=== PATIENT | male | born 1955 | race Caucasian/White ===

== ENCOUNTER → 2023-12-01 10:51 | Outpatient (REF) | payer OTHER, SELFPAY | LOC: HWRAD 10:51 | PROVIDERS: ATTENDING PHYSICIAN Student in an Organized Health Care Education/Training Program | DX: Z87.891 Personal history of nicotine dependence (principal) | CPT/HCPCS: 71271 ==

== ENCOUNTER 2023-12-06 06:16 | Day surgery (SDC) | payer OTHER, SELFPAY ==
[2023-12-03 06:35] VITALS: BMI 29.7
[2023-12-03 09:08] LABS: Hemoglobin 14.8 g/dL (13.0-18.0); Mean Corp Hgb Conc. 33.6 g/dL (33.0-37.0); Mean Corpuscular Hgb 33.9 pg (27.0-31.0); Mean Corpuscular Volume 100.7 fL (80.0-94.0); Mean Platelet Volume 9.7 fL (7.4-10.4); Platelet Count 250 10^3/uL (130-400); Red Blood Cell Count 4.37 10^6/uL (4.70-6.10); Red Cell Dist. Width 11.7 % (11.5-14.5); White Blood Cell Count 8.8 10^3/uL (4.8-10.8)
[2023-12-03 09:17] LABS: INR 1.08; PT 13.8 Sec (11.4-14.6)
[2023-12-03 09:18] LABS: APTT 35.6 Sec (23.4-35.0)
[2023-12-03 09:33] LABS: Blood Urea Nitrogen 11 mg/dl (9-20); Calcium 9.5 mg/dl (8.4-10.2); Carbon Dioxide 30 mmol/L (22-30); Chloride 104 mmol/L (98-107); Estimated Creatinine Clearance 73 ml/min; Glucose 99 mg/dl (70-99); Potassium 4.6 mmol/L (3.5-5.1); Sodium 138 mmol/L (135-145); eGFR > 60.00
[2023-12-06] VITALS (10 sets, daily range): BP systolic 111–168; BP diastolic 79–102; BMI 29.6
== END 2023-12-06 12:09 | disposition home or self-care (01) ==
LOC: GI 06:16
PROVIDERS: ATTENDING PHYSICIAN Internal Medicine Critical Care Medicine; FAMILY PHYSICIAN Student in an Organized Health Care Education/Training Program
DX: C34.11 Malignant neoplasm of upper lobe, right bronchus or lung (principal); R91.8 Other nonspecific abnormal finding of lung field; R06.02 Shortness of breath; R09.89 Other specified symptoms and signs involving the circulatory and respiratory systems; J45.909 Unspecified asthma, uncomplicated; Z87.891 Personal history of nicotine dependence
CPT/HCPCS: 31629; 31652; 31628; 31624; 31623; 31627; 31654; 88172; 88173; 88305; 36415; 71045; 76000; 80048; 85027; 85610; 85730; 87070; 87102; 87116; 87205; 88112; 88177; 88333; 88341; 88342; 93005; 94640; C1887

== ENCOUNTER → 2024-01-07 13:19 | Outpatient (REF) | payer OTHER, SELFPAY | LOC: MRI 3T 13:19 | PROVIDERS: ATTENDING PHYSICIAN Internal Medicine Hematology & Oncology; FAMILY PHYSICIAN Student in an Organized Health Care Education/Training Program | DX: C34.11 Malignant neoplasm of upper lobe, right bronchus or lung (principal) | CPT/HCPCS: 70553; A9575 ==

== ENCOUNTER → 2024-01-13 08:21 | Outpatient (REF) | payer OTHER, SELFPAY ==
[2024-01-13 09:16] LABS: % Basophils 0.4 % (0-2); % Eosinophils 2.2 % (0-6); % Immature Granulocytes 0.3 % (0-0.5); % Lymphocytes 34.2 % (20.5-51.1); % Neutrophils 52.9 % (42.2-75.2); Absolute Eosinophils 0.2 10^3/uL (0-0.7); Absolute Lymphocytes 2.7 10^3/uL (1.2-3.4); Absolute Monocytes 0.8 10^3/uL (0.1-0.6); Absolute Neutrophils 4.1 10^3/uL (1.4-6.5); Hematocrit 44.6 % (39.0-52.0); Hemoglobin 14.7 g/dL (13.0-18.0); Mean Corpuscular Hgb 33.4 pg (27.0-31.0); Mean Corpuscular Volume 101.4 fL (80.0-94.0); Mean Platelet Volume 9.7 fL (7.4-10.4); Nucleated Red Blood Cells % 0 % (-); Platelet Count 225 10^3/uL (130-400); Red Cell Dist. Width 11.8 % (11.5-14.5); White Blood Cell Count 7.8 10^3/uL (4.8-10.8)
[2024-01-13] MEDS: ANCEF 10 IV (09:27)
[2024-01-13 09:33] VITALS: BP 135/97; BP_SYST 67
[2024-01-13 09:39] LABS: ALT (SGPT) 21 U/L (0-50); AST (SGOT) 27 U/L (17-59); Albumin 4.1 g/dl (3.5-5.0); Alkaline Phosphatase 114 U/L (38-126); Blood Urea Nitrogen 11 mg/dl (9-20); Calcium 9.4 mg/dl (8.4-10.2); Carbon Dioxide 31 mmol/L (22-30); Chloride 104 mmol/L (98-107); Glucose 102 mg/dl (70-99); Potassium 5.4 mmol/L (3.5-5.1); Sodium 142 mmol/L (135-145); Total Bilirubin 0.5 mg/dl (0.2-1.3); Total Protein 7.2 g/dl (6.3-8.2); eGFR > 60.00
[2024-01-13 09:41] LABS: Glucose - Point of Care 104 mg/dl (70-99)
[2024-01-13 09:56] LABS: Free T4 1.42 ng/dl (0.78-2.19)
[2024-01-13 10:10] LABS: TSH 4.26 uIU/ml (0.47-4.68)
[2024-01-13 10:56] VITALS: BP 133/88; BP_SYST 60
[2024-01-13 11:05] VITALS: BP 136/85; BP_SYST 57
[2024-01-13 11:16] VITALS: BP 135/90
[2024-01-15 02:02] LABS: Total T3 (Sendout) 120 ng/dL (80-200)
== END ==
LOC: RADI 08:21
PROVIDERS: ATTENDING PHYSICIAN Internal Medicine Hematology & Oncology; FAMILY PHYSICIAN Student in an Organized Health Care Education/Training Program
DX: C34.11 Malignant neoplasm of upper lobe, right bronchus or lung (principal)
CPT/HCPCS: 36415; 36561; 76937; 77001; 80053; 82962; 84439; 84443; 84480; 85025; 99152; 99153

== ENCOUNTER → 2024-01-18 10:30 | Outpatient (REF) | payer OTHER, SELFPAY ==
[2024-01-18 09:49] LABS: % Basophils 0.2 % (0-2); % Eosinophils 2.2 % (0-6); % Immature Granulocytes 0.2 % (0-0.5); % Monocytes 11.9 % (1.7-9.3); % Neutrophils 55.5 % (42.2-75.2); Absolute Eosinophils 0.2 10^3/uL (0-0.7); Absolute Lymphocytes 2.8 10^3/uL (1.2-3.4); Absolute Monocytes 1.1 10^3/uL (0.1-0.6); Absolute Neutrophils 5.2 10^3/uL (1.4-6.5); Hematocrit 42.5 % (39.0-52.0); Hemoglobin 14.7 g/dL (13.0-18.0); Mean Corp Hgb Conc. 34.6 g/dL (33.0-37.0); Mean Corpuscular Hgb 33.8 pg (27.0-31.0); Mean Corpuscular Volume 97.7 fL (80.0-94.0); Mean Platelet Volume 9.3 fL (7.4-10.4); Platelet Count 211 10^3/uL (130-400); Red Blood Cell Count 4.35 10^6/uL (4.70-6.10); Red Cell Dist. Width 11.5 % (11.5-14.5); White Blood Cell Count 9.3 10^3/uL (4.8-10.8)
[2024-01-18 10:29] LABS: ALT (SGPT) 20 U/L (0-50); AST (SGOT) 27 U/L (17-59); Albumin 4.3 g/dl (3.5-5.0); Alkaline Phosphatase 116 U/L (38-126); Blood Urea Nitrogen 8 mg/dl (9-20); Calcium 9.5 mg/dl (8.4-10.2); Carbon Dioxide 27 mmol/L (22-30); Chloride 105 mmol/L (98-107); Glucose 113 mg/dl (70-99); Potassium 4.2 mmol/L (3.5-5.1); Sodium 140 mmol/L (135-145); Total Bilirubin 0.6 mg/dl (0.2-1.3); Total Protein 7.6 g/dl (6.3-8.2); eGFR > 60.00
== END ==
LOC: OIDL 10:30
PROVIDERS: ATTENDING PHYSICIAN Internal Medicine Hematology & Oncology
DX: C34.11 Malignant neoplasm of upper lobe, right bronchus or lung (principal)
CPT/HCPCS: 80053; 85025

== ENCOUNTER → 2024-01-25 09:11 | Outpatient (REF) | payer OTHER, SELFPAY ==
[2024-01-25 09:50] LABS: % Basophils 0.3 % (0-2); % Eosinophils 1.8 % (0-6); % Immature Granulocytes 0.5 % (0-0.5); % Lymphocytes 33.7 % (20.5-51.1); % Monocytes 2.3 % (1.7-9.3); % Neutrophils 61.4 % (42.2-75.2); Absolute Eosinophils 0.1 10^3/uL (0-0.7); Absolute Lymphocytes 1.3 10^3/uL (1.2-3.4); Absolute Monocytes 0.1 10^3/uL (0.1-0.6); Absolute Neutrophils 2.4 10^3/uL (1.4-6.5); Hematocrit 41.5 % (39.0-52.0); Hemoglobin 13.9 g/dL (13.0-18.0); Mean Corp Hgb Conc. 33.5 g/dL (33.0-37.0); Mean Corpuscular Volume 98.6 fL (80.0-94.0); Mean Platelet Volume 9.6 fL (7.4-10.4); Nucleated Red Blood Cells % 0 % (-); Platelet Count 113 10^3/uL (130-400); Red Blood Cell Count 4.21 10^6/uL (4.70-6.10); Red Cell Dist. Width 11.2 % (11.5-14.5); White Blood Cell Count 3.9 10^3/uL (4.8-10.8)
[2024-01-25 10:24] LABS: ALT (SGPT) 24 U/L (0-50); AST (SGOT) 35 U/L (17-59); Albumin 4.2 g/dl (3.5-5.0); Alkaline Phosphatase 105 U/L (38-126); Blood Urea Nitrogen 18 mg/dl (9-20); Calcium 9.1 mg/dl (8.4-10.2); Carbon Dioxide 27 mmol/L (22-30); Chloride 101 mmol/L (98-107); Glucose 131 mg/dl (70-99); Sodium 137 mmol/L (135-145); Total Bilirubin 0.8 mg/dl (0.2-1.3); Total Protein 7.3 g/dl (6.3-8.2); eGFR > 60.00
== END ==
LOC: REG 09:11
PROVIDERS: ATTENDING PHYSICIAN Internal Medicine Hematology & Oncology; FAMILY PHYSICIAN Student in an Organized Health Care Education/Training Program
DX: C34.11 Malignant neoplasm of upper lobe, right bronchus or lung (principal)
CPT/HCPCS: 36415; 80053; 85025

== ENCOUNTER → 2024-02-08 10:46 | Outpatient (REF) | payer OTHER, SELFPAY ==
[2024-02-08 11:35] LABS: Hematocrit 32.4 % (39.0-52.0); Mean Corpuscular Hgb 33.1 pg (27.0-31.0); Mean Corpuscular Volume 97.6 fL (80.0-94.0); Mean Platelet Volume 9.2 fL (7.4-10.4); Platelet Count 564 10^3/uL (130-400); Red Blood Cell Count 3.32 10^6/uL (4.70-6.10); Red Cell Dist. Width 11.6 % (11.5-14.5); White Blood Cell Count 2.8 10^3/uL (4.8-10.8)
[2024-02-08 11:59] LABS: ALT (SGPT) 36 U/L (0-50); AST (SGOT) 41 U/L (17-59); Albumin 3.6 g/dl (3.5-5.0); Alkaline Phosphatase 94 U/L (38-126); Blood Urea Nitrogen 9 mg/dl (9-20); Calcium 8.7 mg/dl (8.4-10.2); Carbon Dioxide 30 mmol/L (22-30); Chloride 104 mmol/L (98-107); Glucose 120 mg/dl (70-99); Potassium 4.2 mmol/L (3.5-5.1); Sodium 140 mmol/L (135-145); Total Bilirubin 0.3 mg/dl (0.2-1.3); Total Protein 6.6 g/dl (6.3-8.2); eGFR > 60.00
[2024-02-08 12:30] LABS: TSH Reflex To Free T4 0.08 uIU/ml (0.47-4.68)
[2024-02-08 12:59] LABS: Free T4 4.25 ng/dl (0.78-2.19)
[2024-02-08 14:06] LABS: Nucleated Red Blood Cells % 0 % (-)
[2024-02-08 14:07] LABS: Absolute Neutrophils -Man Diff 0.6 10^3/uL (1.4-6.5); Band Neutrophils 0 % (0-3); Eosinophils 2 % (0-6); Lymphocytes 43 % (20-51); Monocytes 31 % (2-9); Myelocytes 2 % (-); Normal RBC Morphology Yes; Platelets Checked Yes; Segmented Neutrophils 22 % (42-75); Total Cells Counted 100
== END ==
LOC: REG 10:46
PROVIDERS: ATTENDING PHYSICIAN Internal Medicine Hematology & Oncology
DX: C34.11 Malignant neoplasm of upper lobe, right bronchus or lung (principal)
CPT/HCPCS: 36415; 80053; 84439; 84443; 85025

== ENCOUNTER → 2024-02-14 15:46 | Outpatient (REF) | payer OTHER, SELFPAY ==
[2024-02-14 11:37] LABS: Hematocrit 32.3 % (39.0-52.0); Mean Corp Hgb Conc. 34.1 g/dL (33.0-37.0); Red Blood Cell Count 3.33 10^6/uL (4.70-6.10); Red Cell Dist. Width 12.6 % (11.5-14.5); White Blood Cell Count 8.1 10^3/uL (4.8-10.8)
[2024-02-14 11:45] LABS: ALT (SGPT) 46 U/L (0-50); AST (SGOT) 49 U/L (17-59); Albumin 3.5 g/dl (3.5-5.0); Alkaline Phosphatase 108 U/L (38-126); Blood Urea Nitrogen 17 mg/dl (9-20); Calcium 8.6 mg/dl (8.4-10.2); Carbon Dioxide 26 mmol/L (22-30); Chloride 109 mmol/L (98-107); Glucose 112 mg/dl (70-99); Potassium 4.6 mmol/L (3.5-5.1); Sodium 143 mmol/L (135-145); Total Bilirubin 0.4 mg/dl (0.2-1.3); Total Protein 6.7 g/dl (6.3-8.2); eGFR > 60.00
[2024-02-14 11:50] LABS: Mean Platelet Volume 9.5 fL (7.4-10.4); Platelet Count 585 10^3/uL (130-400)
[2024-02-14 11:53] LABS: Band Neutrophils 3 % (0-3); Lymphocytes 26 % (20-51); Metamyelocytes 1 % (-); Monocytes 23 % (2-9); Platelets Checked Yes; Segmented Neutrophils 47 % (42-75)
[2024-02-14 11:54] LABS: Normal RBC Morphology Yes; Total Cells Counted 100
== END ==
LOC: OIDL 15:46
PROVIDERS: ATTENDING PHYSICIAN Internal Medicine Hematology & Oncology
DX: C34.11 Malignant neoplasm of upper lobe, right bronchus or lung (principal)
CPT/HCPCS: 80053; 85025

== ENCOUNTER → 2024-02-16 12:12 | Outpatient (REF) | payer OTHER, SELFPAY ==
[2024-02-16 13:17] LABS: Urine Albumin Trace (Neg - Trace); Urine Bilirubin 1+ (Negative); Urine Character Clear (Clear); Urine Color Yellow; Urine Glucose Negative (Negative); Urine Ketone Trace (Negative); Urine Leukocyte Negative (Negative); Urine Nitrite Negative (Negative); Urine Occult Blood Negative (Negative); Urine Urobilinogen Negative (Neg - 1+)
== END ==
LOC: REG 12:12
PROVIDERS: ATTENDING PHYSICIAN Internal Medicine Hematology & Oncology; FAMILY PHYSICIAN Student in an Organized Health Care Education/Training Program
DX: C34.11 Malignant neoplasm of upper lobe, right bronchus or lung (principal)
CPT/HCPCS: 81003; 87086; 87147; 87186

== ENCOUNTER → 2024-02-28 11:02 | Outpatient (REF) | payer OTHER, SELFPAY ==
[2024-02-28 12:14] LABS: % Basophils 0.2 % (0-2); % Eosinophils 0.2 % (0-6); % Immature Granulocytes 0.4 % (0-0.5); % Lymphocytes 27.4 % (20.5-51.1); % Neutrophils 56.8 % (42.2-75.2); Absolute Lymphocytes 1.4 10^3/uL (1.2-3.4); Absolute Monocytes 0.7 10^3/uL (0.1-0.6); Absolute Neutrophils 2.8 10^3/uL (1.4-6.5); Hematocrit 33.2 % (39.0-52.0); Hemoglobin 11.6 g/dL (13.0-18.0); Mean Corp Hgb Conc. 34.9 g/dL (33.0-37.0); Mean Corpuscular Hgb 33.2 pg (27.0-31.0); Mean Corpuscular Volume 95.1 fL (80.0-94.0); Nucleated Red Blood Cells % 0 % (-); Red Blood Cell Count 3.49 10^6/uL (4.70-6.10); Red Cell Dist. Width 12.1 % (11.5-14.5); White Blood Cell Count 4.9 10^3/uL (4.8-10.8)
[2024-02-28 12:29] LABS: Mean Platelet Volume 10.4 fL (7.4-10.4); Platelet Count 96 10^3/uL (130-400)
[2024-02-28 12:31] LABS: ALT (SGPT) 40 U/L (0-50); AST (SGOT) 47 U/L (17-59); Alkaline Phosphatase 107 U/L (38-126); Blood Urea Nitrogen 15 mg/dl (9-20); Calcium 8.8 mg/dl (8.4-10.2); Carbon Dioxide 24 mmol/L (22-30); Chloride 102 mmol/L (98-107); Glucose 143 mg/dl (70-99); Sodium 136 mmol/L (135-145); Total Bilirubin 0.4 mg/dl (0.2-1.3); Total Protein 7.1 g/dl (6.3-8.2)
== END ==
LOC: REG 11:02
PROVIDERS: ATTENDING PHYSICIAN Internal Medicine Hematology & Oncology; FAMILY PHYSICIAN Student in an Organized Health Care Education/Training Program
DX: C34.11 Malignant neoplasm of upper lobe, right bronchus or lung (principal)
CPT/HCPCS: 36415; 80053; 84443; 85025

== ENCOUNTER → 2024-03-07 09:33 | Outpatient (REF) | payer OTHER, SELFPAY ==
[2024-03-07 11:00] LABS: Hematocrit 30.5 % (39.0-52.0); Hemoglobin 10.3 g/dL (13.0-18.0); Mean Corp Hgb Conc. 33.8 g/dL (33.0-37.0); Mean Corpuscular Hgb 33.4 pg (27.0-31.0); Platelet Count 184 10^3/uL (130-400); Red Blood Cell Count 3.08 10^6/uL (4.70-6.10); Red Cell Dist. Width 14.4 % (11.5-14.5)
[2024-03-07 11:52] LABS: Absolute Neutrophils -Man Diff 23.1 10^3/uL (1.4-6.5); Band Neutrophils 3 % (0-3); Lymphocytes 15 % (20-51); Metamyelocytes 2 % (-); Monocytes 4 % (2-9); Myelocytes 2 % (-); Platelets Checked Yes; Segmented Neutrophils 74 % (42-75)
[2024-03-07 11:53] LABS: Anisocytosis 1+; Normal RBC Morphology No; Total Cells Counted 100
[2024-03-07 14:28] LABS: ALT (SGPT) 26 U/L (0-50); AST (SGOT) 43 U/L (17-59); Albumin 3.7 g/dl (3.5-5.0); Alkaline Phosphatase 159 U/L (38-126); Blood Urea Nitrogen 9 mg/dl (9-20); Calcium 8.9 mg/dl (8.4-10.2); Carbon Dioxide 26 mmol/L (22-30); Chloride 108 mmol/L (98-107); Glucose 124 mg/dl (70-99); Potassium 3.7 mmol/L (3.5-5.1); Sodium 142 mmol/L (135-145); Total Bilirubin 0.2 mg/dl (0.2-1.3); Total Protein 6.6 g/dl (6.3-8.2); eGFR > 60.00
== END ==
LOC: REG 09:33
PROVIDERS: ATTENDING PHYSICIAN Internal Medicine Hematology & Oncology; FAMILY PHYSICIAN Student in an Organized Health Care Education/Training Program
DX: C34.11 Malignant neoplasm of upper lobe, right bronchus or lung (principal)
CPT/HCPCS: 36415; 80053; 85025

== ENCOUNTER → 2024-03-13 13:19 | Outpatient (REF) | payer OTHER, SELFPAY ==
[2024-03-13 15:01] LABS: % Basophils 0.5 % (0-2); % Eosinophils 0.3 % (0-6); % Immature Granulocytes 0.9 % (0-0.5); % Lymphocytes 15.7 % (20.5-51.1); % Monocytes 9.9 % (1.7-9.3); % Neutrophils 72.7 % (42.2-75.2); Absolute Basophils 0.1 10^3/uL (0-0.2); Absolute Immature Granulocytes 0.1 10^3/uL (0-0.05); Absolute Lymphocytes 1.6 10^3/uL (1.2-3.4); Absolute Neutrophils 7.6 10^3/uL (1.4-6.5); Hematocrit 30.1 % (39.0-52.0); Hemoglobin 10.1 g/dL (13.0-18.0); Mean Corp Hgb Conc. 33.6 g/dL (33.0-37.0); Mean Corpuscular Hgb 34.2 pg (27.0-31.0); Mean Platelet Volume 10.9 fL (7.4-10.4); Nucleated Red Blood Cells % 0 % (-); Platelet Count 122 10^3/uL (130-400); Red Blood Cell Count 2.95 10^6/uL (4.70-6.10); White Blood Cell Count 10.4 10^3/uL (4.8-10.8)
[2024-03-13 15:24] LABS: ALT (SGPT) 21 U/L (0-50); AST (SGOT) 32 U/L (17-59); Albumin 2.3 g/dl (3.5-5.0); Alkaline Phosphatase 132 U/L (38-126); Blood Urea Nitrogen 10 mg/dl (9-20); Calcium 8.4 mg/dl (8.4-10.2); Carbon Dioxide 28 mmol/L (22-30); Chloride 107 mmol/L (98-107); Glucose 110 mg/dl (70-99); Potassium 3.8 mmol/L (3.5-5.1); Sodium 139 mmol/L (135-145); Total Bilirubin 0.4 mg/dl (0.2-1.3); Total Protein 6.3 g/dl (6.3-8.2); eGFR > 60.00
== END ==
LOC: REG 13:19
PROVIDERS: ATTENDING PHYSICIAN Internal Medicine Hematology & Oncology; FAMILY PHYSICIAN Student in an Organized Health Care Education/Training Program
DX: C34.11 Malignant neoplasm of upper lobe, right bronchus or lung (principal)
CPT/HCPCS: 36415; 80053; 85025

== ENCOUNTER → 2024-03-20 11:01 | Outpatient (REF) | payer OTHER, SELFPAY ==
[2024-03-20 12:18] LABS: Hemoglobin 9.9 g/dL (13.0-18.0); Mean Corp Hgb Conc. 34.1 g/dL (33.0-37.0); Mean Corpuscular Hgb 35.2 pg (27.0-31.0); Mean Corpuscular Volume 103.2 fL (80.0-94.0); Mean Platelet Volume 10.5 fL (7.4-10.4); Platelet Count 205 10^3/uL (130-400); Red Blood Cell Count 2.81 10^6/uL (4.70-6.10); Red Cell Dist. Width 17.9 % (11.5-14.5); White Blood Cell Count 2.8 10^3/uL (4.8-10.8)
[2024-03-20 12:48] LABS: ALT (SGPT) 56 U/L (0-50); AST (SGOT) 66 U/L (17-59); Albumin 3.6 g/dl (3.5-5.0); Alkaline Phosphatase 106 U/L (38-126); Blood Urea Nitrogen 12 mg/dl (9-20); Calcium 8.4 mg/dl (8.4-10.2); Carbon Dioxide 28 mmol/L (22-30); Chloride 101 mmol/L (98-107); Glucose 116 mg/dl (70-99); Potassium 4.9 mmol/L (3.5-5.1); Sodium 136 mmol/L (135-145); Total Bilirubin 0.7 mg/dl (0.2-1.3); Total Protein 6.6 g/dl (6.3-8.2); eGFR > 60.00
[2024-03-20 13:36] LABS: % Basophils 0.7 % (0-2); % Eosinophils 2.5 % (0-6); % Immature Granulocytes 0.4 % (0-0.5); % Lymphocytes 35.2 % (20.5-51.1); % Monocytes 2.5 % (1.7-9.3); % Neutrophils 58.7 % (42.2-75.2); Absolute Eosinophils 0.1 10^3/uL (0-0.7); Absolute Monocytes 0.1 10^3/uL (0.1-0.6); Absolute Neutrophils 1.7 10^3/uL (1.4-6.5); Nucleated Red Blood Cells % 0 % (-)
== END ==
LOC: REG 11:01
PROVIDERS: ATTENDING PHYSICIAN Internal Medicine Hematology & Oncology; FAMILY PHYSICIAN Student in an Organized Health Care Education/Training Program
DX: C34.11 Malignant neoplasm of upper lobe, right bronchus or lung (principal)
CPT/HCPCS: 36415; 80053; 85025

== ENCOUNTER → 2024-03-22 15:06 | Outpatient (REF) | payer OTHER, SELFPAY ==
[2024-03-22 17:02] LABS: Free T4 0.73 ng/dl (0.78-2.19)
== END ==
LOC: OIDL 15:06
PROVIDERS: ATTENDING PHYSICIAN Internal Medicine Hematology & Oncology
DX: C34.11 Malignant neoplasm of upper lobe, right bronchus or lung (principal)
CPT/HCPCS: 84439; 84443

== ENCOUNTER → 2024-03-27 10:45 | Outpatient (REF) | payer OTHER, SELFPAY ==
[2024-03-27 12:37] LABS: % Basophils 1.1 % (0-2); % Eosinophils 0.4 % (0-6); % Lymphocytes 25.1 % (20.5-51.1); % Monocytes 1.3 % (1.7-9.3); % Neutrophils 72.1 % (42.2-75.2); Absolute Basophils 0.1 10^3/uL (0-0.2); Absolute Lymphocytes 1.2 10^3/uL (1.2-3.4); Absolute Monocytes 0.1 10^3/uL (0.1-0.6); Absolute Neutrophils 3.4 10^3/uL (1.4-6.5); Hematocrit 25.4 % (39.0-52.0); Hemoglobin 8.6 g/dL (13.0-18.0); Mean Corp Hgb Conc. 33.9 g/dL (33.0-37.0); Mean Corpuscular Volume 103.3 fL (80.0-94.0); Nucleated Red Blood Cells % 0 % (-); Red Blood Cell Count 2.46 10^6/uL (4.70-6.10); Red Cell Dist. Width 17.3 % (11.5-14.5); White Blood Cell Count 4.7 10^3/uL (4.8-10.8)
[2024-03-27 13:20] LABS: Platelet Count 10 10^3/uL (130-400)
[2024-03-27 13:43] LABS: ALT (SGPT) 26 U/L (0-50); AST (SGOT) 32 U/L (17-59); Albumin 3.4 g/dl (3.5-5.0); Alkaline Phosphatase 101 U/L (38-126); Blood Urea Nitrogen 25 mg/dl (9-20); Calcium 8.2 mg/dl (8.4-10.2); Carbon Dioxide 28 mmol/L (22-30); Chloride 103 mmol/L (98-107); Glucose 128 mg/dl (70-99); Potassium 3.9 mmol/L (3.5-5.1); Sodium 141 mmol/L (135-145); Total Protein 6.4 g/dl (6.3-8.2); eGFR > 60.00
== END ==
LOC: REG 10:45
PROVIDERS: ATTENDING PHYSICIAN Internal Medicine Hematology & Oncology; FAMILY PHYSICIAN Student in an Organized Health Care Education/Training Program
DX: C34.11 Malignant neoplasm of upper lobe, right bronchus or lung (principal)
CPT/HCPCS: 36415; 80053; 85025; 86850; 86900; 86901

== ENCOUNTER 2024-03-29 16:19 | Emergency (ER) | payer OTHER, SELFPAY ==
[2024-03-29] VITALS (8 sets, daily range): BP systolic 126–162; BP diastolic 79–93; BMI 28.5
--- NOTE | 2024-03-29 16:33 | ED.PDOC.TRB ---
ED Provider Triage
-
Patient seen by provider in Triage?: Seen in Triage
A medical screening examination has been initiated by a qualified medical provider. Based on the assessment performed at this time, it has been determined that an emergent medical condition may exist and the patient has been informed that further
medical evaluation and possible additional diagnostic testing may be needed.
HPI: This is a medical evaluation conducted in person to initiate diagnostic evaluation and provide initial therapeutics. Please see further documentation by the treating clinician.
GENERAL: Alert ,tearful
EYE: No visual abnormalities.
NECK: Trachea midline
ENT: No visible abnormalities.
LUNGS: No acute respiratory distress
NEUROLOGICAL: Alert and oriented
SKIN: no visible lesions.
MUSCULOSKELETAL: Moving extremities normally
PSYCH: Normal and appropriate interaction.
68-year-old male with past medical history of chronic anemia secondary to chronic disease, lung cancer presenting to the emergency department today with outpatient hemoglobin in the sixes. Here for blood transfusion. Claims that he feels some
generalized weakness and fatigue but does not have any significant chest pain feels generally well was able to walk into the ER today. Initial labs and type and screen sent.
[2024-03-29 17:28] LABS: Hematocrit 18.7 % (39.0-52.0); Hemoglobin 6.6 g/dL (13.0-18.0); Mean Corp Hgb Conc. 35.3 g/dL (33.0-37.0); Mean Corpuscular Hgb 35.5 pg (27.0-31.0); Mean Corpuscular Volume 100.5 fL (80.0-94.0); Mean Platelet Volume 10.3 fL (7.4-10.4); Platelet Count 8 10^3/uL (130-400); Red Blood Cell Count 1.86 10^6/uL (4.70-6.10); Red Cell Dist. Width 16.9 % (11.5-14.5)
[2024-03-29 17:39] LABS: ALT (SGPT) 20 U/L (0-50); AST (SGOT) 30 U/L (17-59); Albumin 3.3 g/dl (3.5-5.0); Alkaline Phosphatase 90 U/L (38-126); Blood Urea Nitrogen 26 mg/dl (9-20); Calcium 8.3 mg/dl (8.4-10.2); Carbon Dioxide 29 mmol/L (22-30); Chloride 104 mmol/L (98-107); Glucose 111 mg/dl (70-99); Sodium 141 mmol/L (135-145); Total Bilirubin 0.5 mg/dl (0.2-1.3); Total Protein 6.1 g/dl (6.3-8.2); eGFR > 60.00
[2024-03-29 18:20] LABS: % Basophils 0.7 % (0-2); % Eosinophils 0.7 % (0-6); % Lymphocytes 64.2 % (20.5-51.1); % Neutrophils 30.4 % (42.2-75.2); Absolute Monocytes 0.1 10^3/uL (0.1-0.6); Absolute Neutrophils 0.5 10^3/uL (1.4-6.5); Nucleated Red Blood Cells % 0 % (-)
[2024-03-29 18:21] LABS: White Blood Cell Count 1.5 10^3/uL (4.8-10.8)
--- NOTE | 2024-03-29 19:46 | ED.GENMED ---
History of Present Illness
General
Chief Complaint: Abnormal Lab Value
Source: patient
Time Seen by Provider: 03/29/24 19:35
History of Present Illness
History of Present Illness:
68yoM with a history of lung cancer on chemotherapy presenting for evaluation of abnormal outpatient labs. Patient had his weekly labs 2 days ago. His platelet count was low and he received a platelet transfusion yesterday. He had a Keytruda
treatment earlier today. Repeat lab work was done at that time which again showed low blood counts. He was called and told to go to the ED for evaluation. He is minimally symptomatic currently. He denies any hematochezia or melena. No dizziness,
syncope, shortness of breath, weakness.
Phy Exam
General Physical Exam
General Presentation: well appearing and no apparent distress
General age: appears stated age
General Skin: warm and dry
General Habitus: elderly
General Mental: alert
Cardiovascular Exam
Cardiovascular Exam: regular rate/rhythm and no murmur
Pulmonary Exam
Pulmonary Exam: lungs clear, no respiratory distress, no crackles and no wheezing
Skin Exam
Skin Exam: normal color and warm/dry
Psychiatric Exam
Psychiatric Exam: normal mood/affect
Course
Orders/Labs/Results
Orders:
Orders
03/29/24 17:11
Type+Screen Urgent
Complete Blood Count/With Diff Urgent
Comprehensive Metabolic Panel Urgent
03/29/24 19:47
Blood Bank Products [* Blood Bank Products] Urgent
Blood Bank Products: *Packed RBC Leuko(PRBC's)
Quantity: 1
Transfuse Today: Yes
Reason: Anemia
Abnormal Lab Results
03/29/24
17:11
WBC 1.5 L* 10^3/uL
(4.8-10.8)
RBC 1.86 L 10^6/uL
(4.70-6.10)
Hgb 6.6 L* g/dL
(13.0-18.0)
Hct 18.7 L* %
(39.0-52.0)
MCV 100.5 H fL
(80.0-94.0)
MCH 35.5 H pg
(27.0-31.0)
RDW 16.9 H %
(11.5-14.5)
Plt Count 8 L* 10^3/uL
(130-400)
Absolute Neuts (auto) 0.5 L* 10^3/uL
(1.4-6.5)
Absolute Lymphs (auto) 1.0 L 10^3/uL
(1.2-3.4)
Neutrophils % 30.4 L %
(42.2-75.2)
Lymphocytes % 64.2 H %
(20.5-51.1)
BUN 26 H mg/dl
(9-20)
Glucose 111 H mg/dl
(70-99)
Calcium 8.3 L mg/dl
(8.4-10.2)
Total Protein 6.1 L g/dl
(6.3-8.2)
Albumin 3.3 L g/dl
(3.5-5.0)
Crossmatch IS Only See Detail
03/29/24 17:11
03/29/24 17:11
Vital Signs
Initial and Last Documented VS:
Initial Vital Signs
Temp Pulse Resp BP Pulse Ox
99.4 F 90 20 128/86 96
03/29/24 16:31 03/29/24 16:31 03/29/24 16:31 03/29/24 16:31 03/29/24 16:31
Last Documented Vital Signs
Temp Pulse Resp BP Pulse Ox
98.3 F 63 11 140/85 100
03/29/24 23:00 03/29/24 23:00 03/29/24 23:00 03/29/24 23:00 03/29/24 23:00
MDM/Problems Addressed
Differential Diagnosis Includes:
68yoM here for low hemoglobin/platelets seen on outpatient labs. Hx of lung cancer receiving chemotherapy. Vitals are stable and he is relatively asymptomatic currently. Differential diagnosis includes but is not limited to: bone marrow suppression
from chemotherapy, anemia of chronic disease, iron deficiency
Labs obtained in triage which show a pancytopenia including WBC of 1.5, hemoglobin 6.6, and platelets of 8. Case was discussed with oncologist, Dr. Tovar, who recommends pRBC x1 and platelet x 1 transfusion.
*Critical Care Note
Total Time (30-74mins, 75-104mins- exclusive of procedures): Not Applicable
Update Note
Update Note:
Blood bank called by nursing staff. No platelets available in hospital. Platelets would have to come from the [facility] which would take 4-10 hours. Discussed this with Dr. Tovar as patient does not want to be in the ED all night. Per Dr. Tovar,
platelet transfusion is okay to be performed tomorrow.
Patient tolerated pRBC transfusion well without any immediate complications. He is stable for discharge. He was advised to call his oncology team tomorrow to schedule his platelet transfusion. ED return precautions discussed. He was discharged in
stable condition.
ED Attending Note
-
Portions of this chart may have been created with voice recognition software.� Occasional wrong word or��sound alike� substitutions may have occurred due to the inherent limitations of voice recognition software.
Discharge Plan
Departure
Patient Disposition: Home (Routine Discharge)
Date of Disposition: 03/29/24
Time of Disposition: 22:11
Patient with high blood pressure during this ER visit?: No
Discharge Problem:
Pancytopenia
Instructions: Anemia, Possibly From Low Iron, Adult ED
Prescriptions:
No Action
multivitamin Tablet
1 tab PO DAILY
levothyroxine 50 mcg Tablet
50 mcg PO DAILY
ascorbic acid (vitamin C) [Vitamin C] 500 mg Tablet Extended Release
500 mg PO DAILY
vitamin E (dl, acetate) 180 mg (400 unit) Capsule
180 mg PO DAILY
Referrals:
UNKNOWN - PT DOES,NOT KNOW [Unknown Provider] -
Activity Restrictions/Additional Instructions:
Please call your oncology team tomorrow to set up your platelet transfusion.
Return to the ER with any new or worsening symptoms.
Interventions
Interventions:
*Risk Screen - Suicide Last Done: 03/29/24 16:31
*General Assessment Last Done: 03/29/24 23:12
*Neglect/Abuse Screening Last Done: 03/29/24 16:31
ED- Fall Risk Assessment Last Done: 03/29/24 23:12
*ED COVID-19 Vaccine History Last Done: 03/29/24 16:31
*Nursing Disposition Last Done: 03/29/24 23:12
Discharge Date and Time
Discharge Date/Time: 03/29/24 23:25
Print Language: SOUTH SUDANESE
--- NOTE | 2024-03-29 23:17 | VATNOTE ---
R SUBQ PRT FLUSHED WITH 500 UNITS OF HEPARIN AND DEACCESSED.. PT D/C'D FROM EMR.
== END 2024-03-29 23:25 | disposition home or self-care (01) ==
LOC: EMR 16:19
PROVIDERS: Physician Assistant; EMERGENCY PHYSICIAN Emergency Medicine; FAMILY PHYSICIAN Student in an Organized Health Care Education/Training Program
DX: D61.818 Other pancytopenia (principal)
CPT/HCPCS: 99283; 36430; 80053; 85025; 86850; 86900; 86901; 86920; P9016

== ENCOUNTER 2024-03-31 09:29 | Outpatient (RCR) | payer OTHER, SELFPAY ==
[2024-03-28 11:18] VITALS: BP 134/88
[2024-03-28 11:35] VITALS: BP 130/88
[2024-03-28 12:16] VITALS: BP 135/78
[2024-03-29 14:57] LABS: Hematocrit 18.4 % (39.0-52.0); Hemoglobin 6.5 g/dL (13.0-18.0); Mean Corp Hgb Conc. 35.3 g/dL (33.0-37.0); Mean Corpuscular Hgb 35.3 pg (27.0-31.0); Mean Platelet Volume 10.2 fL (7.4-10.4); Platelet Count 8 10^3/uL (130-400); Red Blood Cell Count 1.84 10^6/uL (4.70-6.10); Red Cell Dist. Width 16.9 % (11.5-14.5); White Blood Cell Count 1.7 10^3/uL (4.8-10.8)
[2024-03-29 15:18] LABS: % Basophils 0.6 % (0-2); % Eosinophils 0.6 % (0-6); % Immature Granulocytes 1.8 % (0-0.5); % Lymphocytes 60.5 % (20.5-51.1); % Neutrophils 33.5 % (42.2-75.2); Absolute Monocytes 0.1 10^3/uL (0.1-0.6); Absolute Neutrophils 0.6 10^3/uL (1.4-6.5); Nucleated Red Blood Cells % 0 % (-)
[2024-03-31 10:54] VITALS: BP 121/70
[2024-03-31 11:13] VITALS: BP 122/71
[2024-03-31 11:55] VITALS: BP 128/72
== END 2024-04-01 23:59 | disposition home or self-care (01) ==
LOC: OID 09:29
PROVIDERS: ATTENDING PHYSICIAN Internal Medicine Hematology & Oncology; FAMILY PHYSICIAN Student in an Organized Health Care Education/Training Program
DX: C34.11 Malignant neoplasm of upper lobe, right bronchus or lung (principal); D69.6 Thrombocytopenia, unspecified; D64.9 Anemia, unspecified; D70.9 Neutropenia, unspecified
CPT/HCPCS: 36430; 85025; 86900; 86901; P9073

== ENCOUNTER → 2024-04-04 09:55 | Outpatient (REF) | payer OTHER, SELFPAY ==
[2024-04-04 11:47] LABS: Hematocrit 22.7 % (39.0-52.0); Hemoglobin 7.6 g/dL (13.0-18.0); Mean Corp Hgb Conc. 33.5 g/dL (33.0-37.0); Mean Corpuscular Hgb 34.4 pg (27.0-31.0); Mean Corpuscular Volume 102.7 fL (80.0-94.0); Mean Platelet Volume 11.8 fL (7.4-10.4); Platelet Count 63 10^3/uL (130-400); Red Blood Cell Count 2.21 10^6/uL (4.70-6.10)
[2024-04-04 12:14] LABS: Absolute Neutrophils -Man Diff 9.6 10^3/uL (1.4-6.5); Anisocytosis 1+; Band Neutrophils 5 % (0-3); Eosinophils 2 % (0-6); Hypochromasia 1+; Lymphocytes 15 % (20-51); Macrocytosis Slight; Metamyelocytes 3 % (-); Monocytes 8 % (2-9); Myelocytes 12 % (-); Normal RBC Morphology No; Platelets Checked Yes; Polychromasia Slight; Segmented Neutrophils 55 % (42-75); Total Cells Counted 100
[2024-04-04 12:18] LABS: ALT (SGPT) 22 U/L (0-50); AST (SGOT) 47 U/L (17-59); Albumin 3.6 g/dl (3.5-5.0); Alkaline Phosphatase 123 U/L (38-126); Blood Urea Nitrogen 11 mg/dl (9-20); Calcium 8.8 mg/dl (8.4-10.2); Carbon Dioxide 28 mmol/L (22-30); Chloride 106 mmol/L (98-107); Glucose 104 mg/dl (70-99); Potassium 3.7 mmol/L (3.5-5.1); Sodium 143 mmol/L (135-145); Total Bilirubin 0.7 mg/dl (0.2-1.3); Total Protein 6.6 g/dl (6.3-8.2); eGFR > 60.00
== END ==
LOC: REG 09:55
PROVIDERS: ATTENDING PHYSICIAN Internal Medicine Hematology & Oncology; FAMILY PHYSICIAN Student in an Organized Health Care Education/Training Program
DX: C34.11 Malignant neoplasm of upper lobe, right bronchus or lung (principal)
CPT/HCPCS: 36415; 80053; 85025

== ENCOUNTER → 2024-04-10 10:25 | Outpatient (REF) | payer OTHER, SELFPAY ==
[2024-04-10 12:00] LABS: ALT (SGPT) 17 U/L (0-50); AST (SGOT) 34 U/L (17-59); Albumin 3.5 g/dl (3.5-5.0); Alkaline Phosphatase 107 U/L (38-126); Blood Urea Nitrogen 9 mg/dl (9-20); Calcium 7.2 mg/dl (8.4-10.2); Carbon Dioxide 25 mmol/L (22-30); Chloride 105 mmol/L (98-107); Glucose 138 mg/dl (70-99); Potassium 3.6 mmol/L (3.5-5.1); Sodium 142 mmol/L (135-145); Total Bilirubin 0.7 mg/dl (0.2-1.3); Total Protein 6.8 g/dl (6.3-8.2); eGFR > 60.00
[2024-04-10 12:28] LABS: Hematocrit 25.8 % (39.0-52.0); Hemoglobin 8.8 g/dL (13.0-18.0); Mean Corp Hgb Conc. 34.1 g/dL (33.0-37.0); Mean Corpuscular Hgb 36.2 pg (27.0-31.0); Mean Corpuscular Volume 106.2 fL (80.0-94.0); Mean Platelet Volume 10.5 fL (7.4-10.4); Platelet Count 208 10^3/uL (130-400); Red Blood Cell Count 2.43 10^6/uL (4.70-6.10); Red Cell Dist. Width 19.4 % (11.5-14.5); White Blood Cell Count 12.8 10^3/uL (4.8-10.8)
[2024-04-10 13:21] LABS: Absolute Neutrophils -Man Diff 8.3 10^3/uL (1.4-6.5); Band Neutrophils 1 % (0-3); Lymphocytes 12 % (20-51); Monocytes 20 % (2-9); Segmented Neutrophils 64 % (42-75)
[2024-04-10 13:22] LABS: Metamyelocytes 3 % (-)
[2024-04-10 13:23] LABS: Anisocytosis 2+; Hypochromasia 2+; Macrocytosis 1+; Normal RBC Morphology No; Ovalocytes Slight; Platelets Checked Yes; Polychromasia Slight; Total Cells Counted 100
== END ==
LOC: REG 10:25
PROVIDERS: ATTENDING PHYSICIAN Internal Medicine Hematology & Oncology; FAMILY PHYSICIAN Student in an Organized Health Care Education/Training Program
DX: C34.11 Malignant neoplasm of upper lobe, right bronchus or lung (principal)
CPT/HCPCS: 36415; 80053; 85025

== ENCOUNTER → 2024-04-17 10:49 | Outpatient (REF) | payer OTHER, SELFPAY ==
[2024-04-17 11:56] LABS: Hemoglobin 8.2 g/dL (13.0-18.0); Mean Corp Hgb Conc. 32.8 g/dL (33.0-37.0); Mean Corpuscular Hgb 34.7 pg (27.0-31.0); Mean Corpuscular Volume 105.9 fL (80.0-94.0); Mean Platelet Volume 9.7 fL (7.4-10.4); Platelet Count 228 10^3/uL (130-400); Red Blood Cell Count 2.36 10^6/uL (4.70-6.10); Red Cell Dist. Width 19.8 % (11.5-14.5); White Blood Cell Count 37.9 10^3/uL (4.8-10.8)
[2024-04-17 12:27] LABS: ALT (SGPT) 47 U/L (0-50); AST (SGOT) 64 U/L (17-59); Albumin 3.4 g/dl (3.5-5.0); Alkaline Phosphatase 182 U/L (38-126); Blood Urea Nitrogen 12 mg/dl (9-20); Calcium 8.3 mg/dl (8.4-10.2); Carbon Dioxide 28 mmol/L (22-30); Chloride 104 mmol/L (98-107); Glucose 129 mg/dl (70-99); Iron 198 ug/dl (49-181); Potassium 4.1 mmol/L (3.5-5.1); Sodium 143 mmol/L (135-145); Total Bilirubin 0.4 mg/dl (0.2-1.3); Total Protein 6.8 g/dl (6.3-8.2); eGFR > 60.00
[2024-04-17 12:37] LABS: Percent Saturation 107 % (20-50); Total Iron Binding Capacity 185 ug/dl (261-462)
[2024-04-17 12:40] LABS: Absolute Neutrophils -Man Diff 29.1 10^3/uL (1.4-6.5); Anisocytosis 1+; Atypical Lymphocytes 2 %; Band Neutrophils 1 % (0-3); Lymphocytes 19 % (20-51); Monocytes 2 % (2-9); Normal RBC Morphology No; Platelets Checked Yes; Segmented Neutrophils 76 % (42-75)
[2024-04-17 12:41] LABS: Hypochromasia 1+; Macrocytosis Slight; Polychromasia Slight; Total Cells Counted 100
[2024-04-17 13:24] LABS: Free T4 1.03 ng/dl (0.78-2.19)
== END ==
LOC: REG 10:49
PROVIDERS: ATTENDING PHYSICIAN Internal Medicine Hematology & Oncology; FAMILY PHYSICIAN Student in an Organized Health Care Education/Training Program
DX: C34.11 Malignant neoplasm of upper lobe, right bronchus or lung (principal); D69.6 Thrombocytopenia, unspecified; D64.9 Anemia, unspecified; D70.9 Neutropenia, unspecified
CPT/HCPCS: 36415; 80053; 82728; 83540; 83550; 84439; 84443; 85025

== ENCOUNTER → 2024-04-19 13:33 | Outpatient (REF) | payer OTHER, SELFPAY ==
[2024-04-19 13:52] LABS: % Basophils 0.1 % (0-2); % Immature Granulocytes 0.9 % (0-0.5); % Lymphocytes 7.7 % (20.5-51.1); % Monocytes 6.4 % (1.7-9.3); % Neutrophils 84.9 % (42.2-75.2); Absolute Immature Granulocytes 0.2 10^3/uL (0-0.05); Absolute Monocytes 1.7 10^3/uL (0.1-0.6); Hematocrit 23.8 % (39.0-52.0); Hemoglobin 7.9 g/dL (13.0-18.0); Mean Corp Hgb Conc. 33.2 g/dL (33.0-37.0); Mean Corpuscular Hgb 35.6 pg (27.0-31.0); Mean Corpuscular Volume 107.2 fL (80.0-94.0); Mean Platelet Volume 9.5 fL (7.4-10.4); Platelet Count 144 10^3/uL (130-400); Red Blood Cell Count 2.22 10^6/uL (4.70-6.10); Red Cell Dist. Width 18.7 % (11.5-14.5); White Blood Cell Count 25.9 10^3/uL (4.8-10.8)
== END ==
LOC: OIDL 13:33
PROVIDERS: ATTENDING PHYSICIAN Internal Medicine Hematology & Oncology
DX: C34.11 Malignant neoplasm of upper lobe, right bronchus or lung (principal)
CPT/HCPCS: 85025

== ENCOUNTER 2024-04-20 12:48 | Outpatient (RCR) | payer OTHER, SELFPAY ==
[2024-04-05 10:00] VITALS: BP 154/89
[2024-04-05 10:31] VITALS: BP 154/89
[2024-04-05 10:48] VITALS: BP 116/77
[2024-04-05 12:11] VITALS: BP 118/59
[2024-04-20 13:09] VITALS: BP 146/89
[2024-04-20 13:28] VITALS: BP 143/78
[2024-04-20 15:00] VITALS: BP 151/83
== END 2024-05-01 23:59 | disposition home or self-care (01) ==
LOC: OID 12:48
PROVIDERS: ATTENDING PHYSICIAN Internal Medicine Hematology & Oncology; FAMILY PHYSICIAN Student in an Organized Health Care Education/Training Program
DX: D50.9 Iron deficiency anemia, unspecified (principal); R79.0 Abnormal level of blood mineral (principal); R71.8 Other abnormality of red blood cells; D51.9 Vitamin B12 deficiency anemia, unspecified; E66.01 Morbid (severe) obesity due to excess calories; K21.9 Gastro-esophageal reflux disease without esophagitis; R53.83 Other fatigue
CPT/HCPCS: 36415; 36430; 86850; 86900; 86901; 86920; P9016

== ENCOUNTER → 2024-04-26 10:03 | Outpatient (REF) | payer OTHER, SELFPAY ==
[2024-04-26 12:08] LABS: Hematocrit 29.3 % (39.0-52.0); Hemoglobin 9.4 g/dL (13.0-18.0); Mean Corp Hgb Conc. 32.1 g/dL (33.0-37.0); Mean Corpuscular Hgb 34.6 pg (27.0-31.0); Mean Corpuscular Volume 107.7 fL (80.0-94.0); Platelet Count 100 10^3/uL (130-400); Red Blood Cell Count 2.72 10^6/uL (4.70-6.10); Red Cell Dist. Width 20.6 % (11.5-14.5); White Blood Cell Count 7.5 10^3/uL (4.8-10.8)
[2024-04-26 12:24] LABS: ALT (SGPT) 28 U/L (0-50); AST (SGOT) 39 U/L (17-59); Albumin 3.8 g/dl (3.5-5.0); Alkaline Phosphatase 146 U/L (38-126); Blood Urea Nitrogen 11 mg/dl (9-20); Calcium 8.6 mg/dl (8.4-10.2); Carbon Dioxide 26 mmol/L (22-30); Chloride 104 mmol/L (98-107); Glucose 135 mg/dl (70-99); Potassium 4.6 mmol/L (3.5-5.1); Sodium 141 mmol/L (135-145); Total Bilirubin 0.3 mg/dl (0.2-1.3); Total Protein 7.4 g/dl (6.3-8.2); eGFR > 60.00
[2024-04-26 13:17] LABS: Absolute Neutrophils -Man Diff 4.5 10^3/uL (1.4-6.5); Band Neutrophils 1 % (0-3); Segmented Neutrophils 60 % (42-75)
[2024-04-26 13:19] LABS: Atypical Lymphocytes 1 %; Lymphocytes 18 % (20-51); Metamyelocytes 1 % (-); Monocytes 19 % (2-9)
[2024-04-26 13:20] LABS: Anisocytosis 1+; Hypochromasia 1+; Macrocytosis Slight; Normal RBC Morphology No; Ovalocytes Slight; Platelets Checked Yes; Poikilocytosis Slight; Polychromasia Slight; Total Cells Counted 100
== END ==
LOC: REG 10:03
PROVIDERS: ATTENDING PHYSICIAN Internal Medicine Hematology & Oncology; FAMILY PHYSICIAN Student in an Organized Health Care Education/Training Program
DX: C34.11 Malignant neoplasm of upper lobe, right bronchus or lung (principal)
CPT/HCPCS: 36415; 80053; 85025

== ENCOUNTER → 2024-05-02 11:00 | Outpatient (REF) | payer OTHER, SELFPAY ==
[2024-05-02 12:32] LABS: % Basophils 0.4 % (0-2); % Eosinophils 1.6 % (0-6); % Immature Granulocytes 1.6 % (0-0.5); % Monocytes 18.1 % (1.7-9.3); % Neutrophils 50.3 % (42.2-75.2); Absolute Eosinophils 0.1 10^3/uL (0-0.7); Absolute Immature Granulocytes 0.1 10^3/uL (0-0.05); Absolute Lymphocytes 2.1 10^3/uL (1.2-3.4); Absolute Monocytes 1.3 10^3/uL (0.1-0.6); Absolute Neutrophils 3.7 10^3/uL (1.4-6.5); Hemoglobin 10.2 g/dL (13.0-18.0); Mean Corp Hgb Conc. 32.9 g/dL (33.0-37.0); Mean Corpuscular Hgb 36.6 pg (27.0-31.0); Mean Corpuscular Volume 111.1 fL (80.0-94.0); Mean Platelet Volume 9.7 fL (7.4-10.4); Nucleated Red Blood Cells % 0 % (-); Platelet Count 254 10^3/uL (130-400); Red Blood Cell Count 2.79 10^6/uL (4.70-6.10); Red Cell Dist. Width 21.6 % (11.5-14.5); White Blood Cell Count 7.4 10^3/uL (4.8-10.8)
[2024-05-02 13:14] LABS: ALT (SGPT) 21 U/L (0-50); AST (SGOT) 35 U/L (17-59); Alkaline Phosphatase 134 U/L (38-126); Blood Urea Nitrogen 10 mg/dl (9-20); Calcium 8.8 mg/dl (8.4-10.2); Carbon Dioxide 25 mmol/L (22-30); Chloride 104 mmol/L (98-107); Glucose 126 mg/dl (70-99); Potassium 4.8 mmol/L (3.5-5.1); Sodium 143 mmol/L (135-145); Total Bilirubin 0.4 mg/dl (0.2-1.3); Total Protein 7.9 g/dl (6.3-8.2); eGFR > 60.00
== END ==
LOC: REG 11:00
PROVIDERS: ATTENDING PHYSICIAN Internal Medicine Hematology & Oncology; FAMILY PHYSICIAN Student in an Organized Health Care Education/Training Program
DX: C34.11 Malignant neoplasm of upper lobe, right bronchus or lung (principal)
CPT/HCPCS: 36415; 80053; 85025

== ENCOUNTER → 2024-05-08 09:47 | Outpatient (REF) | payer OTHER, SELFPAY ==
[2024-05-08 10:47] LABS: Hematocrit 31.9 % (39.0-52.0); Hemoglobin 10.5 g/dL (13.0-18.0); Mean Corp Hgb Conc. 32.9 g/dL (33.0-37.0); Mean Corpuscular Hgb 35.7 pg (27.0-31.0); Mean Corpuscular Volume 108.5 fL (80.0-94.0); Mean Platelet Volume 9.1 fL (7.4-10.4); Platelet Count 253 10^3/uL (130-400); Red Blood Cell Count 2.94 10^6/uL (4.70-6.10); Red Cell Dist. Width 21.7 % (11.5-14.5); White Blood Cell Count 5.4 10^3/uL (4.8-10.8)
[2024-05-08 11:03] LABS: Absolute Neutrophils -Man Diff 2.8 10^3/uL (1.4-6.5); Anisocytosis 1+; Band Neutrophils 0 % (0-3); Lymphocytes 32 % (20-51); Macrocytosis 1+; Monocytes 15 % (2-9); Normal RBC Morphology No; Platelets Checked Yes; Segmented Neutrophils 53 % (42-75); Total Cells Counted 100
[2024-05-08 11:13] LABS: ALT (SGPT) 18 U/L (0-50); AST (SGOT) 34 U/L (17-59); Alkaline Phosphatase 117 U/L (38-126); Blood Urea Nitrogen 13 mg/dl (9-20); Calcium 8.9 mg/dl (8.4-10.2); Carbon Dioxide 28 mmol/L (22-30); Chloride 103 mmol/L (98-107); Glucose 106 mg/dl (70-99); Potassium 4.8 mmol/L (3.5-5.1); Sodium 143 mmol/L (135-145); Total Bilirubin 0.4 mg/dl (0.2-1.3); Total Protein 7.9 g/dl (6.3-8.2); eGFR > 60.00
== END ==
LOC: REG 09:47
PROVIDERS: ATTENDING PHYSICIAN Internal Medicine Hematology & Oncology; FAMILY PHYSICIAN Student in an Organized Health Care Education/Training Program
DX: C34.11 Malignant neoplasm of upper lobe, right bronchus or lung (principal)
CPT/HCPCS: 36415; 80053; 85025

== ENCOUNTER → 2024-05-24 07:16 | Outpatient (REF) | payer OTHER, SELFPAY | LOC: DHCBC/DCA 07:16 | PROVIDERS: ATTENDING PHYSICIAN Internal Medicine Cardiovascular Disease; FAMILY PHYSICIAN Student in an Organized Health Care Education/Training Program | DX: Z01.810 Encounter for preprocedural cardiovascular examination (principal); I25.10 Atherosclerotic heart disease of native coronary artery without angina pectoris; R06.02 Shortness of breath | CPT/HCPCS: 78452; 93017; A9500 ==

== ENCOUNTER → 2024-05-24 13:22 | Outpatient (REF) | payer OTHER, SELFPAY ==
[2024-05-24 15:44] LABS: % Basophils 0.5 % (0-2); % Immature Granulocytes 0.3 % (0-0.5); % Lymphocytes 34.3 % (20.5-51.1); % Monocytes 17.9 % (1.7-9.3); Absolute Eosinophils 0.2 10^3/uL (0-0.7); Absolute Lymphocytes 1.4 10^3/uL (1.2-3.4); Absolute Monocytes 0.7 10^3/uL (0.1-0.6); Absolute Neutrophils 1.7 10^3/uL (1.4-6.5); Hematocrit 30.3 % (39.0-52.0); Hemoglobin 10.4 g/dL (13.0-18.0); Mean Corp Hgb Conc. 34.3 g/dL (33.0-37.0); Mean Corpuscular Volume 107.8 fL (80.0-94.0); Mean Platelet Volume 9.4 fL (7.4-10.4); Nucleated Red Blood Cells % 0 % (-); Platelet Count 158 10^3/uL (130-400); Red Blood Cell Count 2.81 10^6/uL (4.70-6.10); Red Cell Dist. Width 17.9 % (11.5-14.5)
[2024-05-24 15:55] LABS: ALT (SGPT) 15 U/L (0-50); AST (SGOT) 30 U/L (17-59); Albumin 4.1 g/dl (3.5-5.0); Alkaline Phosphatase 86 U/L (38-126); Blood Urea Nitrogen 16 mg/dl (9-20); Calcium 8.9 mg/dl (8.4-10.2); Carbon Dioxide 29 mmol/L (22-30); Chloride 102 mmol/L (98-107); Glucose 118 mg/dl (70-99); Potassium 4.3 mmol/L (3.5-5.1); Sodium 141 mmol/L (135-145); Total Bilirubin 0.5 mg/dl (0.2-1.3); Total Protein 7.9 g/dl (6.3-8.2); eGFR > 60.00
== END ==
LOC: REG 13:22
PROVIDERS: ATTENDING PHYSICIAN Internal Medicine Hematology & Oncology; FAMILY PHYSICIAN Student in an Organized Health Care Education/Training Program
DX: C34.11 Malignant neoplasm of upper lobe, right bronchus or lung (principal); D69.6 Thrombocytopenia, unspecified; D64.9 Anemia, unspecified; D70.9 Neutropenia, unspecified
CPT/HCPCS: 36415; 80053; 85025

== ENCOUNTER → 2024-05-26 13:17 | Outpatient (REF) | payer OTHER, SELFPAY | LOC: RCS 13:17 | PROVIDERS: ATTENDING PHYSICIAN Internal Medicine Cardiovascular Disease; FAMILY PHYSICIAN Student in an Organized Health Care Education/Training Program | DX: Z01.810 Encounter for preprocedural cardiovascular examination (principal); I25.10 Atherosclerotic heart disease of native coronary artery without angina pectoris; R06.02 Shortness of breath | CPT/HCPCS: 93306 ==

== ENCOUNTER → 2024-06-14 10:40 | Outpatient (REF) | payer OTHER, SELFPAY ==
[2024-06-14 12:04] LABS: % Basophils 0.6 % (0-2); % Immature Granulocytes 0.3 % (0-0.5); % Lymphocytes 40.3 % (20.5-51.1); % Monocytes 14.5 % (1.7-9.3); % Neutrophils 38.3 % (42.2-75.2); Absolute Eosinophils 0.2 10^3/uL (0-0.7); Absolute Lymphocytes 1.4 10^3/uL (1.2-3.4); Absolute Monocytes 0.5 10^3/uL (0.1-0.6); Absolute Neutrophils 1.4 10^3/uL (1.4-6.5); Hematocrit 34.2 % (39.0-52.0); Hemoglobin 11.6 g/dL (13.0-18.0); Mean Corp Hgb Conc. 33.9 g/dL (33.0-37.0); Mean Corpuscular Hgb 36.9 pg (27.0-31.0); Mean Corpuscular Volume 108.9 fL (80.0-94.0); Mean Platelet Volume 9.8 fL (7.4-10.4); Nucleated Red Blood Cells % 0 % (-); Platelet Count 147 10^3/uL (130-400); Red Blood Cell Count 3.14 10^6/uL (4.70-6.10); Red Cell Dist. Width 14.3 % (11.5-14.5); White Blood Cell Count 3.5 10^3/uL (4.8-10.8)
[2024-06-14 13:03] LABS: Free T4 0.88 ng/dl (0.78-2.19)
[2024-06-14 15:15] LABS: ALT (SGPT) 26 U/L (0-50); AST (SGOT) 34 U/L (17-59); Albumin 4.5 g/dl (3.5-5.0); Alkaline Phosphatase 107 U/L (38-126); Blood Urea Nitrogen 17 mg/dl (9-20); Calcium 9.1 mg/dl (8.4-10.2); Carbon Dioxide 29 mmol/L (22-30); Chloride 102 mmol/L (98-107); Glucose 95 mg/dl (70-99); Potassium 4.6 mmol/L (3.5-5.1); Sodium 142 mmol/L (135-145); Total Bilirubin 0.3 mg/dl (0.2-1.3); Total Protein 8.5 g/dl (6.3-8.2); eGFR 58.73
[2024-06-16 17:21] LABS: Total T3 (Sendout) 70 ng/dL (80-200)
== END ==
LOC: REG 10:40
PROVIDERS: ATTENDING PHYSICIAN Internal Medicine Hematology & Oncology; FAMILY PHYSICIAN Student in an Organized Health Care Education/Training Program
DX: C34.11 Malignant neoplasm of upper lobe, right bronchus or lung (principal); D69.6 Thrombocytopenia, unspecified; D64.9 Anemia, unspecified; D70.9 Neutropenia, unspecified
CPT/HCPCS: 36415; 80053; 84439; 84443; 84480; 85025

== ENCOUNTER 2024-07-04 08:54 | Inpatient (IN) | payer OTHER, SELFPAY ==
[2024-06-22 08:44] LABS: Hematocrit 34.2 % (39.0-52.0); Hemoglobin 11.4 g/dL (13.0-18.0); Mean Corp Hgb Conc. 33.3 g/dL (33.0-37.0); Mean Corpuscular Hgb 37.6 pg (27.0-31.0); Mean Corpuscular Volume 112.9 fL (80.0-94.0); Mean Platelet Volume 9.2 fL (7.4-10.4); Platelet Count 163 10^3/uL (130-400); Red Blood Cell Count 3.03 10^6/uL (4.70-6.10); Red Cell Dist. Width 14.3 % (11.5-14.5); White Blood Cell Count 3.8 10^3/uL (4.8-10.8)
[2024-06-22 09:17] LABS: APTT 33.8 Sec (23.4-35.0); INR 0.96; PT 13.2 Sec (11.4-14.6)
[2024-06-22 09:41] LABS: ALT (SGPT) 23 U/L (0-50); AST (SGOT) 34 U/L (17-59); Albumin 4.3 g/dl (3.5-5.0); Alkaline Phosphatase 90 U/L (38-126); Blood Urea Nitrogen 18 mg/dl (9-20); Carbon Dioxide 27 mmol/L (22-30); Chloride 106 mmol/L (98-107); Glucose 107 mg/dl (70-99); Potassium 4.7 mmol/L (3.5-5.1); Sodium 145 mmol/L (135-145); Total Bilirubin 0.5 mg/dl (0.2-1.3); Total Protein 8.1 g/dl (6.3-8.2); eGFR 58.73
[2024-06-22 10:11] VITALS: BMI 28.7
[2024-07-04] VITALS (21 sets, daily range): BP systolic 87–169; BP diastolic 61–97; BMI 28.7
[2024-07-04] MEDS: HEPARIN 5000 UNITS SC ×2 (09:03→19:39)
[2024-07-04] MEDS: TYLENOL 1000 MG PO (09:03)
[2024-07-04] MEDS: NEURONTIN 300 MG PO (09:03)
--- NOTE | 2024-07-04 14:27 | OR.RPT ---
Operative Report
Operative Report
Date of Operation: July 04, 2024
Preoperative Diagnosis: �Right Upper Lobe Lung Ca - C3411
Postoperative Diagnosis: Same
Surgeon: Salvador Clemens M.D.
Operation: Minimally Invasive Right Upper Lobectomy � 81767 & Mediastinal Lymph Node dissection
Anesthesia: GET
Estimated Blood Loss: 100 cc
Drains: Chest tube in the right chest
Specimen: Right upper lobe and mediastinal lymph nodes
Complications: �None
Procedure:
The patient was taken to the operating room and placed in the usual supine position. After an adequate double-lumen endotracheal tube was placed, the patient was positioned in the left decubitus position with the right chest up. The right chest was
prepped and draped in the usual sterile fashion. At this time, a 6 cm mid-axillary incision was made with a #10 blade, and this was taken through the skin into the subcutaneous tissue. The serratus anterior muscle overlying the 5th intercostal space
was identified and split along the course of the muscle fibers. The intercostal muscle of the fifth intercostal space was divided, and the left chest was entered. The left chest was explored. The tumor in the the right upper lobe was identified.
The fissures were completed using Ligasure and EndoGIA purple tri-stapler. The right pulmonary artery branches to the right upper lobe were identified, carefully dissected, ligated, and divided with an EndoGIA gold vascular stapler. The right
superior vein draining the right upper lobe was identified, carefully dissected, transected, and ligated with an EndoGIA vascular gold stapler. The right upper lobe bronchus was dissected, transected, and divided with an EndoGIA purple stapler. The
right upper lobe was removed and sent to pathology for a permanent section. At this time, mediastinal lymph node dissection was performed. The lymph nodes from stations 4 to 8 were taken and sent to pathology for permanent section. Hemostasis was
obtained. A 32 Hungarian chest tube was placed through the anterior thoracostomy incision and anchored to the skin using a #2 nylon suture. The ribs were re-approximated with 1 Vicryl in the transcostal fascia. The serratus anterior muscle was also
re-approximated with 1 Vicryl in a running fashion. The fascia was approximated with 1 Vicryl in a running fashion. The subcutaneous tissue was re-approximated with 3-0 Vicryl in a running fashion. The skin was approximated with 4-0 Monocryl in a
running subcuticular fashion. Steri-strips and a sterile dressing were placed. The chest tube was connected to the Pleurovac. The patient was placed back in the supine position and extubated without any problems. The final needle, sponge, and
instrument counts were correct. The patient was transferred to the recovery room.
[2024-07-04] MEDS: DILAUDID 0.5 MG IV (15:21)
--- NOTE | 2024-07-04 16:03 | PTCARENOTE ---
Pt arrived to[facility] PACU s/p RUL lobectomy. Pt AAOx3, on 2L NC satting 100%. R chest tube in place to wall suction, -20 cm to water, air leak with expiratory, Dr. Clemens aware. R incision drressing next to chest tube C/D/I. Carrero in place draining
yellow urine. Pt states mild discomfort at this time. Oriented to call thakur and room, bed locked and in lowest position, call thakur within reach.
[2024-07-04] MEDS: D5/0.9% SODIUM CHLORIDE 1000 IV (16:29)
[2024-07-04] MEDS: NEURONTIN 200 MG PO ×2 (16:34→20:59)
[2024-07-04] MEDS: TYLENOL 650 MG PO ×3 (16:34→23:02)
[2024-07-04] MEDS: COLACE 100 MG PO (19:39)
[2024-07-05] VITALS (7 sets, daily range): BP systolic 116–138; BP diastolic 68–83; PULSE 65–67; O2SAT 92–96
[2024-07-05] MEDS: TYLENOL PO (03:51)
[2024-07-05] MEDS: SYNTHROID 50 MCG PO (04:27)
[2024-07-05] MEDS: TYLENOL 650 MG PO ×6 (04:27→23:30)
[2024-07-05] MEDS: D5/0.9% SODIUM CHLORIDE 1000 IV (04:27)
[2024-07-05 06:28] LABS: Hematocrit 28.9 % (39.0-52.0); Hemoglobin 9.8 g/dL (13.0-18.0); Mean Corp Hgb Conc. 33.9 g/dL (33.0-37.0); Mean Corpuscular Hgb 38.6 pg (27.0-31.0); Mean Corpuscular Volume 113.8 fL (80.0-94.0); Mean Platelet Volume 9.7 fL (7.4-10.4); Platelet Count 151 10^3/uL (130-400); Red Blood Cell Count 2.54 10^6/uL (4.70-6.10); Red Cell Dist. Width 13.5 % (11.5-14.5); White Blood Cell Count 10.4 10^3/uL (4.8-10.8)
[2024-07-05 06:55] LABS: Blood Urea Nitrogen 29 mg/dl (9-20); Calcium 7.2 mg/dl (8.4-10.2); Carbon Dioxide 26 mmol/L (22-30); Chloride 103 mmol/L (98-107); Estimated Creatinine Clearance 48 ml/min; Glucose 152 mg/dl (70-99); Potassium 4.7 mmol/L (3.5-5.1); Sodium 137 mmol/L (135-145); eGFR 49.47
[2024-07-05] MEDS: NEURONTIN 200 MG PO ×3 (08:14→22:08)
[2024-07-05] MEDS: COLACE 100 MG PO ×2 (08:15→20:25)
[2024-07-05] MEDS: PEPCID 20 MG PO (08:15)
[2024-07-05] MEDS: LIPITOR 10 MG PO (08:15)
[2024-07-05] MEDS: HEPARIN 5000 UNITS SC ×2 (08:16→20:26)
--- NOTE | 2024-07-05 10:29 | CON.PUL ---
Consultation
Consultation Request
Date/Time Consultation Requested: 07/05/24-9 a.m.
Date/Time Consultation Performed: 07/05/2024-9:30 AM
Requesting Provider: Dr. Clemens
Performing Provider: Dr. Smith
Reason for Consultation: postop care management pulm
Medical History
-
Chief Complaint: Thoracic surgery
History of Present Illness:
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
mediastinal lymph node dissection-pulmonary consulted for postoperative pulmonary management 07/05/2024.. He complains of some incisional chest tube site pain, no complaints of shortness of breath at rest, chest congestion or productive cough,,
hemoptysis t, pleurisy, abdominal pain, nausea, leg swelling or weakness.
Past Medical History
Past Medical History: None (Squamous cell lung cancer right lung. Former smoker. Asthma-mild intermittent. Asbestos exposure. FANI.)
Social History
Tobacco: Former Smoker ([id number] quit July 2023)
Drug: None
Personal: Single
Occupational Exposures: Possible asbestos exposure
Environmental Exposures: No known tuberculosis exposure
Family History
Family History: Other (Mother-CVA and leukemia)
Allergies / Home Medications
Allergies
Allergy/AdvReac Type Severity Reaction Status Date / Time
Allergy Rash-Had Uncoded 07/04/24 16:12
reaction
as a child
Zest Soap Allergy Rash Uncoded 06/27/24 13:41
Home Medications
�Medication �Instructions �Recorded �Confirmed �Last Taken �Type
ascorbic acid (vitamin C) 500 mg 500 mg PO DAILY 12/03/23 07/04/24 06/27/24 History
tablet,extended release (Vitamin C
ER)
levothyroxine 50 mcg tablet 50 mcg PO DAILY 12/03/23 07/04/2407/04/24 03:30 History
multivitamin 1 tab PO DAILY 12/03/23 07/04/24 06/27/24 History
atorvastatin 10 mg tablet (Lipitor) 10 mg PO DAILY 06/27/24 07/04/24 07/03/24 19:00 History
vitamin E 1 cap PO DAILY 06/27/24 07/04/24 06/16/24 History
Review of Systems
-
Unable to Obtain full review of systems at this time due to: Other (Per HPI)
Vitals / Labs / Diagnostic Testing
Vital Signs
Temp Pulse Resp BP Pulse Ox
98.4 F 67 16 131/68 93
07/05/24 07:05 07/05/24 07:05 07/05/24 07:05 07/05/24 07:05 07/05/24 07:05
Lab Data
07/05/24 06:00
07/05/24 06:00
Diagnostic Testing:
Physical Exam
-
Exam:
Well-nourished and well-developed in no apparent distress
HEENT-atraumatic, normocephalic
Neck-supple, no JVD, no bruit
Heart-regular rate and rhythm-no murmurs, rubs or gallops
Chest-clear to auscultation, no wheezes, crackles, right chest tube
Back-no tenderness
Abdomen-soft, nontender, nondistended, no hepatosplenomegaly
Extremities-no cyanosis, clubbing, edema and good peripheral pulses
Integument-intact, no rashes, lesions or ecchymosis
Neurology-alert and oriented, nonfocal motor and sensory exam
Assessment
-
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
mediastinal lymph node dissection-pulmonary consulted for postoperative pulmonary management 07/05/2024..
Lung cancer-right side-squamous cell-stage IIb versus stage IIIa
Status post preoperative chemotherapy and immunotherapy-Carbo/Gemzar/Keytruda-Dr. Garrett
Status post right upper lobectomy with mediastinal lymph node dissectio-minimally invasive-Dr. Clemens 07/05/2024
Mild anemia-hemoglobin 9.3-kztcuydtlh-FEO 113.8
Hyperglycemia
Conditions present prior to admission:
Squamous cell lung cancer right lung.
Former wchtck-18-tspi-year quit July 2023
Asthma-mild intermittent.
Asbestos exposure.
FANI-from bronchoscopy December 2023
Plan
Patient seen postoperatively in stable condition
Supplemental oxygen as needed
Incentive spirometry
Chest tube to wall suction
Monitor chest tube output
Follow radiographically
Thoracic surgery following closely
Operative records reviewed
Pathology will be reviewed
Patient is seeing Dr. Garrett from oncology preoperatively-finish 4 cycles of chemotherapy-Carbo/Gemzar/Keytruda and then restaged
Patient last saw Dr. Bush 06/13/2024-will have follow-up appointment after this hospitalization-next one scheduled 10/24/2024-will see sooner
Diagnostic data:
CT [id number] 12/01/2023-large lobulated soft tissue mass posterior aspect right upper lobe measuring 6.5 cm
Chest x-ray 07/04/2024-NAD, postsurgical changes right hemithorax
PET scan 12/20/2023-focal FDG uptake right upper lobe maximum SUV 15.7, mild FDG uptake right hilum measuring SUV 5.2 and left hilum measuring 2.8
PET scan 05/01/2024-decrease in size of activity right upper lobe malignancy now measures SUV 6.2 previously 15.7 and decrease activity within the right hilum maximum SUV 3.4 previously 5.2, no new suspicious hilar or mediastinal hypermetabolic lymph
nodes
stress test 05/24/24: Low risk study.
Robot bronchoscopy 12/06/23: right upper lobe biopsy squamous cell carcinoma, PD L1 80%.� right upper lobe brush, TBNA positive for squamous cell.� Station 11 R, lymphoid tissue present, rare atypical squamous cells. Positive FANI, bacterial and fungal
culture negative.
PFT 03/13/24: FVC 4.07/91%, FEV1 2.95/90%, ratio 72.� TLC 6.35/88%, RV 1.42/53%, DLCO 14.17/52%.� Isolated moderate gas exchange defect
[place] 12/02/23: FVC 3.71/84%, FEV1 32.73/84%, ratio 74.
Data Reviewed
-
PFT: Report reviewed by me
EKG: Report reviewed by me
Radiology: Report reviewed by me
CT Scan: Image personally visualized and interpreted and Report reviewed by me
Ultrasound: Report reviewed by me
Medical Tests (Nuc Med, Echo etc): Report reviewed by me
Labs: Labs reviewed by me
Old Records: Reviewed
Total Time Spent with Patient (in minutes): 65
--- NOTE | 2024-07-05 12:07 | CM ---
Adm dx - Right Upper Lobe Lung Ca; s/p Minimally Invasive Right Upper Lobectomy & Mediastinal Lymph Node dissection
Met with pt at bedside
Pt reports he lives alone in a mobile home at listed address; 3 steps to enter
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
DME - none
SNF/HH - none
Has ride at discharge
PCP - Priyank Lee
Pharm - [facility]
Plan - TBD based on pt needs - CM will follow
--- NOTE | 2024-07-05 13:54 | W.PN.GENERIC ---
Assessment / Plan
-
S/p Minimally invasive right upper lobectomy POD#1
Overall doing well with good pain control
Dec Hg due to perioperative blood loss and dilutional effect
There is no evidence of active bleeding
Small air leak
Will decrease suction to 10 cm H2O pressure
Ambulate chest tube off suction
Await final path
Physician Progress Note
Subjective
No c/o. Min incisional pain. No SOB at rest off O2
Objective
Vital Signs
Temp Pulse Resp BP Pulse Ox
98.2 F 64 16 131/83 97
07/05/24 11:25 07/05/24 11:25 07/05/24 11:25 07/05/24 11:25 07/05/24 11:25
Lab Results
07/05/24 06:00
07/05/24 06:00
Pul - CTA x 2
Cor RRR
Chest tube with a small intermittent leak
--- NOTE | 2024-07-05 16:55 | PTCARENOTE ---
Patient instructed to ring for assistance to ambulate as patient has IV pole and chest tube. patient also instructed to ring call thakur when needing to void as patient had catheter removed this AM. Patient stated he understood. When giving patient
afternoon medication, patient informed RN that he had urinated in the toilet. Patient reeducated about using the call thakur and getting assistance. Patient then found coming to the door to ask for help with a beeping IV pump. Patient again informed
to use call thakur for assistance getting up as he has the chest tube in. Patient stated he understood. patient reeducated to urinate in the urinal next time he has to void. Patient understood.
[2024-07-05] MEDS: FLUSH (NSS) 1 FLUSH IV (18:10)
[2024-07-05] MEDS: D5/0.9% SODIUM CHLORIDE IV (18:13)
--- NOTE | 2024-07-05 19:23 | PTCARENOTE ---
On assessment this AM, RN noticed air leak with expiration as previously reported to MD yesterday. Dr. Clemens made aware again as air leak was a 1 on expiration with regular breaths and a 7 on expiration with a deep breath. Dr Clemens also made aware of
the amount of drainage as well. No new orders taken at that time.
--- NOTE | 2024-07-06 03:43 | PTCARENOTE ---
Pt found getting out of bed. chest tube was knocked over. new pleura vac set up. educated pt on fall risk and safety. bed alarm placed.
[2024-07-06] MEDS: TYLENOL PO ×2 (04:27→23:10)
[2024-07-06] MEDS: SYNTHROID 50 MCG PO (05:06)
[2024-07-06 07:25] VITALS: BP 158/96
[2024-07-06] MEDS: TYLENOL 650 MG PO ×4 (08:00→21:59)
[2024-07-06] MEDS: PEPCID 20 MG PO (08:01)
[2024-07-06] MEDS: HEPARIN 5000 UNITS SC ×2 (08:01→21:57)
[2024-07-06] MEDS: COLACE 100 MG PO ×2 (08:01→21:58)
[2024-07-06] MEDS: LIPITOR 10 MG PO (08:01)
[2024-07-06] MEDS: NEURONTIN 200 MG PO ×3 (08:01→21:57)
--- NOTE | 2024-07-06 09:20 | W.PN.PUL.V3 ---
Today's Communication / Plan
-
.
Monitor chest tube output.
Follow chest x-ray.
Await pathology.
Follow hemoglobin
Assessment
-
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
mediastinal lymph node dissection-pulmonary consulted for postoperative pulmonary management 07/05/2024..
Lung cancer-right side-squamous cell-stage IIb versus stage IIIa
Status post preoperative chemotherapy and immunotherapy-Carbo/Gemzar/Keytrok-Dr. Garrett
Status post right upper lobectomy with mediastinal lymph node dissectio-minimally invasive-Dr. Clemens 07/05/2024
Mild anemia-hemoglobin 9.8-ncdqxpdxgb-IUD 113.8
Hyperglycemia
Conditions present prior to admission:
Squamous cell lung cancer right lung.
Former scfodu-53-absx-year quit July 2023
Asthma-mild intermittent.
Asbestos exposure.
FANI-from bronchoscopy December 2023
Plan
Respiratory status relatively stable
Supplemental oxygen as needed
Incentive spirometry
Chest tube to wall suction--20 cm
Monitor chest tube output-expected
Follow Chest x-ray
Thoracic surgery following closely-correspondence reviewed
Operative records reviewed.
.
Follows with oncology
Monitor hemoglobin.
Transfuse if needed.
No evidence for active bleeding
Pathology will be reviewed
Patient is seeing Dr. Garrett from oncology preoperatively-finish 4 cycles of chemotherapy-Carbo/Gemzar/Keytruda and then restaged
Patient last saw Dr. Bush 06/13/2024-will have follow-up appointment after this hospitalization-next one scheduled 10/24/2024-will see sooner
Diagnostic data:
CT [id number]-[id number] 12/01/2023-large lobulated soft tissue mass posterior aspect right upper lobe measuring 6.5 cm
Chest x-ray 07/04/2024-NAD, postsurgical changes right hemithorax
PET scan 12/20/2023-focal FDG uptake right upper lobe maximum SUV 15.7, mild FDG uptake right hilum measuring SUV 5.2 and left hilum measuring 2.8
PET scan 05/01/2024-decrease in size of activity right upper lobe malignancy now measures SUV 6.2 previously 15.7 and decrease activity within the right hilum maximum SUV 3.4 previously 5.2, no new suspicious hilar or mediastinal hypermetabolic lymph
nodes
stress test 05/24/24: Low risk study.
Robot bronchoscopy 12/06/23: right upper lobe biopsy squamous cell carcinoma, PD L1 80%.� right upper lobe brush, TBNA positive for squamous cell.� Station 11 R, lymphoid tissue present, rare atypical squamous cells. Positive FANI, bacterial and fungal
culture negative.
PFT 03/13/24: FVC 4.07/91%, FEV1 2.95/90%, ratio 72.� TLC 6.35/88%, RV 1.42/53%, DLCO 14.17/52%.� Isolated moderate gas exchange defect
[place] 12/02/23: FVC 3.71/84%, FEV1 32.73/84%, ratio 74.
Subjective Data
-
Date of Service:
Date of Service: July 06, 2024
Chief Complaint: Pulmonary Follow Up and Dyspnea Follow Up
Subjective:
. Pain control, no increased shortness of breath, no abdominal pain or chest pain
Review of Systems
General: Other ( per HPI)
Objective Data
Data Reviewed
Vital Signs / I&O:
Vital Signs
Temp Pulse Resp BP Pulse Ox
98.0 F 62 16 158/96 95
07/06/24 07:25 07/06/24 07:25 07/06/24 07:25 07/06/24 07:25 07/06/24 07:25
Intake and Output
12/04/24 12/05/24 12/06/24
06:59 06:59 06:59
Intake Total 2310 / 2310 1585 / 1585
Output Total 570 / 570 1450 / 1450
Balance 1740 / 1740 135 / 135
SaO2: 95
Nasal Cannula flow liters per minute: 1
Physical Exam
General: Respiratory Distress (n) and Comfortable
HEENT: Normocephalic and Anicteric
Cardiovascular: Regular Rhythm
Respiratory: Wheeze (n), Crackles, Rhonchi (n), Non-Labored Respirations and Chest Tube
GI: Soft, Non Distended and Non Tender
Neurology: Awake, Alert and No Motor Deficits
Skin: Warm, Good Color, Cyanosis (n) and Jaundice (n)
Labs/Micro/Reports
Lab Data
07/05/24 06:00
07/05/24 06:00
--- NOTE | 2024-07-06 11:26 | W.PN.GENERIC ---
Assessment / Plan
-
S/p Minimally invasive right upper lobectomy POD#2
Surgically stable
Await air leak to resolve
Will increase suction back to 20 cm H20 pressure
Continue to ambulate off suction
check CXR in AM
Await pathology
Physician Progress Note
Subjective
No complaints except some incisional pain. No SOB
Objective
Vital Signs
Temp Pulse Resp BP Pulse Ox
98.0 F 62 16 158/96 95
07/06/24 07:25 07/06/24 07:25 07/06/24 07:25 07/06/24 07:25 07/06/24 09:20
Lab Results
07/05/24 06:00
07/05/24 06:00
Chest - CTA x2
Dsg - CDI
Cor - RRR
Chest tube with small air leak (?slightly worse than yesterday?)
--- NOTE | 2024-07-06 11:42 | CM ---
Addendum entered by Zoë Mena 07/06/24 11:47:
IMM explained & signed. In chart
Original Note:
Patient seen at bedside.
await air leak to resolve
cxr tomorrow
PLAN: home, no needs anticipated
[2024-07-06 12:15] VITALS: PULSE 73; O2SAT 97
[2024-07-06 15:56] VITALS: BP 136/67
[2024-07-06 23:31] VITALS: BP 148/93
[2024-07-07] MEDS: TYLENOL PO (05:57)
[2024-07-07] MEDS: SYNTHROID 50 MCG PO (06:21)
[2024-07-07 07:40] VITALS: BP 160/92
--- NOTE | 2024-07-07 09:57 | W.PN.PUL.V3 ---
Today's Communication / Plan
-
.
Chest tube with air leak..
Continues on wall suction.
Follow chest x-ray.
Stable respiratory status-pulmonary will0 sign off-please call with questions
Assessment
-
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
mediastinal lymph node dissection-pulmonary consulted for postoperative pulmonary management 07/05/2024..
Lung cancer-right side-squamous cell-stage IIb versus stage IIIa
Status post preoperative chemotherapy and immunotherapy-Carbo/Gemzar/Keytruda-Dr. Garrett
Status post right upper lobectomy with mediastinal lymph node dissectio-minimally invasive-Dr. Clemens 07/05/2024
Mild anemia-hemoglobin 9.7-pbpoxsjuwg-RHT 113.8
Hyperglycemia
Conditions present prior to admission:
Squamous cell lung cancer right lung.
Former [id number]-year quit July 2023
Asthma-mild intermittent.
Asbestos exposure.
FANI-from bronchoscopy December 2023
Plan
Respiratory status continues to be stable
Supplemental oxygen as needed
Incentive spirometry
Chest tube to wall suction--. Will be increased to 20 cm
Monitor chest tube output and leakage-still with mild air leak
Follow Chest x-ray
Thoracic surgery following closely-correspondence reviewed
Operative records reviewed.
Follows with oncology
Monitor hemoglobin
Transfuse if needed.
No evidence for active bleeding
Pathology will be reviewed
Overall pulmonary status is stable-pulmonary. We'll sign off-. He will follow-up in the office
Patient is seeing Dr. Garrett from oncology preoperatively-finish 4 cycles of chemotherapy-Carbo/Gemzar/Keytruda and then restaged
Patient last saw Dr. Bush 06/13/2024-will have follow-up appointment after this hospitalization-next one scheduled 10/24/2024-will see sooner
Diagnostic data:
CT [id number] 12/01/2023-large lobulated soft tissue mass posterior aspect right upper lobe measuring 6.5 cm
Chest x-ray 07/04/2024-NAD, postsurgical changes right hemithorax
PET scan 12/20/2023-focal FDG uptake right upper lobe maximum SUV 15.7, mild FDG uptake right hilum measuring SUV 5.2 and left hilum measuring 2.8
PET scan 05/01/2024-decrease in size of activity right upper lobe malignancy now measures SUV 6.2 previously 15.7 and decrease activity within the right hilum maximum SUV 3.4 previously 5.2, no new suspicious hilar or mediastinal hypermetabolic lymph
nodes
stress test 05/24/24: Low risk study.
Robot bronchoscopy 12/06/23: right upper lobe biopsy squamous cell carcinoma, PD L1 80%.� right upper lobe brush, TBNA positive for squamous cell.� Station 11 R, lymphoid tissue present, rare atypical squamous cells. Positive FANI, bacterial and fungal
culture negative.
PFT 03/13/24: FVC 4.07/91%, FEV1 2.95/90%, ratio 72.� TLC 6.35/88%, RV 1.42/53%, DLCO 14.17/52%.� Isolated moderate gas exchange defect
Celio 12/02/23: FVC 3.71/84%, FEV1 32.73/84%, ratio 74.
Subjective Data
-
Date of Service:
Date of Service: July 07, 2024
Chief Complaint: Pulmonary Follow Up and Dyspnea Follow Up
Subjective:
No complaints shortness of breath, chest tube with persistent mild leak, no significant chest tube output, no shortness of breath, chest pain or abdominal pain
Review of Systems
General: Other (per HPI)
Objective Data
Data Reviewed
Vital Signs / I&O:
Vital Signs
Temp Pulse Resp BP Pulse Ox
97.9 F 69 16 160/92 94
07/07/24 07:40 07/07/24 07:40 07/07/24 07:40 07/07/24 07:40 07/07/24 07:40
Intake and Output
07/06/24 07/07/24 07/08/24
06:59 06:59 06:59
Intake Total 1585 / 1585 480 / 480
Output Total 1450 / 1450 255 / 255
Balance 135 / 135 225 / 225
SaO2: 94
Nasal Cannula flow liters per minute: 1
Physical Exam
General: Respiratory Distress (n) and Comfortable
HEENT: Normocephalic and Anicteric
Cardiovascular: Regular Rhythm
Respiratory: Wheeze (n), Crackles, Rhonchi (n), Non-Labored Respirations and Chest Tube
GI: Soft, Non Distended and Non Tender
Neurology: Awake, Alert and No Motor Deficits
Skin: Warm, Good Color, Cyanosis (n) and Jaundice (n)
Labs/Micro/Reports
Lab Data
07/05/24 06:00
07/05/24 06:00
[2024-07-07] MEDS: HEPARIN 5000 UNITS SC ×2 (10:01→20:30)
[2024-07-07] MEDS: PEPCID 20 MG PO (10:01)
[2024-07-07] MEDS: COLACE 100 MG PO ×2 (10:01→20:30)
[2024-07-07] MEDS: LIPITOR 10 MG PO (10:01)
[2024-07-07] MEDS: TYLENOL 650 MG PO ×4 (10:02→20:31)
[2024-07-07] MEDS: NEURONTIN 200 MG PO ×3 (10:02→21:45)
--- NOTE | 2024-07-07 14:11 | W.PN.GENERIC ---
Assessment / Plan
-
S/p Right upper lobecotmy POD #3
Overall stable.
Chest tube with a small air leak even when chest tube is clamped
incomplete clamp vs a leak in the chest tube
The connection re-enforced.
Will check CXR after clamping the CT x 2 hours
OOB and ambulate
Check path
Physician Progress Note
Subjective
No complaints. Good pain control.
Objective
Vital Signs
Temp Pulse Resp BP Pulse Ox
97.9 F 69 16 160/92 94
07/07/24 07:40 07/07/24 07:40 07/07/24 07:40 07/07/24 07:40 07/07/24 09:57
Lab Results
07/05/24 06:00
07/05/24 06:00
Chest - CTA
Cor - RRR
[2024-07-07 15:05] VITALS: BP 136/72
--- NOTE | 2024-07-07 15:33 | CM ---
Chart reviewed
Trial chest tube clamp
Chest X-ray
Plan - anticipate home no needs when medically stable
[2024-07-07 23:06] VITALS: BP 120/62
[2024-07-08] MEDS: TYLENOL PO ×2 (00:59→04:30)
[2024-07-08] MEDS: SYNTHROID 50 MCG PO (05:54)
[2024-07-08 07:35] VITALS: BP 148/93
[2024-07-08] MEDS: NEURONTIN 200 MG PO ×3 (08:54→21:51)
[2024-07-08] MEDS: TYLENOL 650 MG PO ×4 (08:54→20:42)
[2024-07-08] MEDS: HEPARIN 5000 UNITS SC ×2 (08:55→20:42)
[2024-07-08] MEDS: LIPITOR 10 MG PO (08:55)
[2024-07-08] MEDS: PEPCID 20 MG PO (08:55)
[2024-07-08] MEDS: COLACE 100 MG PO ×2 (08:55→20:42)
--- NOTE | 2024-07-08 13:00 | W.PN.GENERIC ---
Assessment / Plan
-
S/p RUL resection POD#4
Stable
Persistent air leak
Will connect chest tube back on -10 cm H2O pressure
OOB and ambulate with chest tube off suction
Await path
Physician Progress Note
Subjective
No c/o
Objective
Vital Signs
Temp Pulse Resp BP Pulse Ox
98.2 F 71 18 148/93 94
07/08/24 07:35 07/08/24 07:35 07/08/24 07:35 07/08/24 07:35 07/08/24 07:35
Lab Results
07/05/24 06:00
07/05/24 06:00
Chest - CTA
Chest tube still with small air leak
[2024-07-08 15:05] VITALS: BP 110/79
[2024-07-08 23:00] VITALS: BP 134/84
[2024-07-09] MEDS: TYLENOL PO ×2 (01:07→05:36)
[2024-07-09] MEDS: SYNTHROID 50 MCG PO (05:48)
[2024-07-09 07:10] VITALS: BP 146/97
[2024-07-09] MEDS: COLACE 100 MG PO ×2 (08:39→20:57)
[2024-07-09] MEDS: HEPARIN 5000 UNITS SC ×2 (08:40→20:58)
[2024-07-09] MEDS: LIPITOR 10 MG PO (08:41)
[2024-07-09] MEDS: TYLENOL 650 MG PO ×4 (08:41→20:57)
[2024-07-09] MEDS: PEPCID 20 MG PO (08:41)
[2024-07-09] MEDS: NEURONTIN 200 MG PO ×3 (08:41→20:57)
[2024-07-09 14:55] VITALS: BP 156/92
[2024-07-09 23:05] VITALS: BP 131/80
[2024-07-10] MEDS: TYLENOL PO ×3 (00:20→13:08)
[2024-07-10] MEDS: SYNTHROID 50 MCG PO (05:27)
[2024-07-10 08:00] VITALS: BP 138/84
[2024-07-10] MEDS: HEPARIN 5000 UNITS SC ×2 (09:48→19:58)
[2024-07-10] MEDS: COLACE 100 MG PO ×2 (09:48→19:58)
[2024-07-10] MEDS: NEURONTIN 200 MG PO ×3 (09:49→21:39)
[2024-07-10] MEDS: PEPCID 20 MG PO (09:49)
[2024-07-10] MEDS: LIPITOR 10 MG PO (09:49)
[2024-07-10] MEDS: TYLENOL 650 MG PO ×3 (09:50→19:58)
--- NOTE | 2024-07-10 10:36 | W.PN.GENERIC ---
Assessment / Plan
-
S/p Min Invasive right upper lobectomy POD #6
He remain stable but his air leak has slightly increase.
It is unusual that his air leak has been increasing since his surgery. Immediately after the procedure, he had no air leak, but it has gradually worsened over time. Although he is asymptomatic, he is understandably frustrated. It is likely that a
portion of one of the staple lines has opened, resulting in the air leak.
Today, I repositioned the chest tube and advised him not to use the incentive spirometer to avoid fully inflating the lung. I encouraged him to continue ambulating with the chest tube off suction.
If there is no improvement in the next 24 to 48 hours, we will consider placing a Heimlich valve and managing the situation on an outpatient basis.
This plan has been discussed with the patient.
Physician Progress Note
Subjective
Stable. no c/p. No significan pain or SOB
Objective
Vital Signs
Temp Pulse Resp BP Pulse Ox
98.0 F 68 18 131/80 96
07/09/24 23:05 07/09/24 23:05 07/09/24 23:05 07/09/24 23:05 07/09/24 23:05
Lab Results
07/05/24 06:00
07/05/24 06:00
Pul - CTA X2
Chest tube dressing taken down and redressed. There is no disruption involving the chest tube outside of the pt
--- NOTE | 2024-07-10 15:02 | CM ---
Chart reviewed
Chest tube repositioned due to leak
Ambulating in roach
Following chest xrays
Plan - anticipate home no needs when medically ready
[2024-07-10 16:00] VITALS: BP 133/93
[2024-07-10 23:14] VITALS: BP 156/101
[2024-07-11] MEDS: TYLENOL PO ×2 (00:45→04:07)
[2024-07-11] MEDS: SYNTHROID 50 MCG PO (05:05)
[2024-07-11 07:00] VITALS: BP 128/81
[2024-07-11] MEDS: TYLENOL 650 MG PO ×4 (09:03→20:39)
[2024-07-11] MEDS: NEURONTIN 200 MG PO ×3 (09:03→20:43)
[2024-07-11] MEDS: HEPARIN 5000 UNITS SC ×2 (09:04→20:39)
[2024-07-11] MEDS: PEPCID 20 MG PO (09:04)
[2024-07-11] MEDS: LIPITOR 10 MG PO (09:04)
[2024-07-11] MEDS: COLACE 100 MG PO ×2 (09:04→20:39)
--- NOTE | 2024-07-11 14:32 | CM ---
Patient seen at bedside, no change in discharge plan at this time. CM will continue to follow for discharge planning needs.
Plan; home with no needs anticipated.
[2024-07-11 15:00] VITALS: BP 120/78
[2024-07-11 16:11] VITALS: BP 120/78
--- NOTE | 2024-07-11 17:43 | W.PN.GENERIC ---
Assessment / Plan
-
S/p right upper lobectomy
Air leak appears to be smaller
Will keep chest tube to 30 cm H20 pressure on suction
Encourage pulmonary toilet
Physician Progress Note
Subjective
No complaints.
Objective
Vital Signs
Temp Pulse Resp BP Pulse Ox
97.7 F 67 18 120/78 94
07/11/24 15:00 07/11/24 15:00 07/11/24 15:00 07/11/24 15:00 07/11/24 15:00
Lab Results
07/05/24 06:00
07/05/24 06:00
Chest - CTA
Chest with air leak
[2024-07-11 23:04] VITALS: BP 123/81
[2024-07-12] MEDS: TYLENOL PO ×2 (04:23)
[2024-07-12] MEDS: SYNTHROID 50 MCG PO (05:54)
[2024-07-12 07:24] VITALS: BP 152/81
[2024-07-12] MEDS: HEPARIN 5000 UNITS SC ×2 (08:32→20:23)
[2024-07-12] MEDS: TYLENOL 650 MG PO ×4 (08:33→20:23)
[2024-07-12] MEDS: PEPCID 20 MG PO (08:33)
[2024-07-12] MEDS: LIPITOR 10 MG PO (08:33)
[2024-07-12] MEDS: NEURONTIN 200 MG PO ×3 (08:33→21:30)
[2024-07-12] MEDS: COLACE 100 MG PO ×2 (08:33→20:23)
--- NOTE | 2024-07-12 14:19 | CM ---
Chart reviewed
CT to sx - following chest xray's
Plan - anticipate home no needs when medically stable
[2024-07-12 15:28] VITALS: BP 122/83
--- NOTE | 2024-07-12 17:01 | W.PN.GENERIC ---
Assessment / Plan
-
S/p RIght upper lobectomy
Stable
Still with small persistent air leak
Will drop the pressure back to -20 cm H2O pressure
ok to ambulate off suction
Continue current care
Physician Progress Note
Subjective
no complaints. Still with small intermittent air leak
Objective
Vital Signs
Temp Pulse Resp BP Pulse Ox
97.8 F 75 20 122/83 95
07/12/24 15:28 07/12/24 15:28 07/12/24 15:28 07/12/24 15:28 07/12/24 15:28
Lab Results
07/05/24 06:00
07/05/24 06:00
Pul - CTA x 2
Chest tube with small air leak on -30 cmH20
[2024-07-12 23:49] VITALS: BP 117/84
[2024-07-13] MEDS: TYLENOL PO (00:30)
--- NOTE | 2024-07-13 04:17 | DOWNTIME ---
There was a [employer] Client Tech Writer Downtime on 07/13/2024 from 0200 to 07/13/2024 at 0325 . Downtime documentation of patient's care, including medication administrations, has been reconciled in the electronic record per guidelines. Refer to the
patient's paper chart under the miscellaneous tab to see printed paper medication records and downtime forms.
[2024-07-13] MEDS: TYLENOL 650 MG PO ×5 (05:00→20:08)
[2024-07-13] MEDS: SYNTHROID 50 MCG PO (05:01)
[2024-07-13 06:39] VITALS: BP 148/85
[2024-07-13] MEDS: HEPARIN 5000 UNITS SC ×2 (08:34→20:08)
[2024-07-13] MEDS: PEPCID 20 MG PO (08:34)
[2024-07-13] MEDS: COLACE 100 MG PO ×2 (08:34→20:08)
[2024-07-13] MEDS: NEURONTIN 200 MG PO ×3 (08:34→21:29)
[2024-07-13] MEDS: LIPITOR 10 MG PO (08:34)
--- NOTE | 2024-07-13 11:59 | PN.CDI ---
CDI
- -
CDI:
Physician Documentation Request
Admit Date: 07/04/24 08:54
Dear Doctor Sarath,
Please review the following and provide your response in the progress notes.
Clinical Indicators:
PN, 07/10
#S/p Min Invasive right upper lobectomy POD #6
#He remain stable but his air leak has slightly increase.
#...It is unusual that his air leak has been increasing since his surgery.
#...Immediately after the procedure, he had no air leak, but it has gradually worsened over time.
#...Although he is asymptomatic, he is understandably frustrated.
#...It is likely that a portion of one of the staple lines has opened, resulting in the air leak.
Based on the above and your clinical assessment, please clarify the following:
Air leak, (possible stable line has opened), is a complication of the surgery
Air leak, (possible stable line has opened), is unexpected but is NOT a complication of the surgery
Air leak, (possible stable line has opened), is an expected occurrence and is not a complication of surgery
Air leak, (possible stable line has opened), is inherent to/unavoidable during the surgery and is not a complication
Other(please specify)
Use of terms such as suspected, likely, concern for, or probable (associated with a specific diagnosis that is being evaluated, monitored, or treated as if it exists) are acceptable and can be coded in the inpatient setting, when documented at the
time of discharge.
Thank you,
Lauryn Velasco RN BSN CCDS
CDI Specialist
please contact via tiger text
Please use your independent medical judgment in providing your response.
[2024-07-13 15:10] VITALS: BP 132/78
--- NOTE | 2024-07-13 20:21 | W.PN.GENERIC ---
Assessment / Plan
-
s/p RUP resection
Stable
Small but peristent air leak
Air leak, (possible stable line has opened), is unexpected but is NOT a complication of the surgery.
CXR on H20 seal x 5 hrs
Although the official reading states a new moderate sized PTX, the same line was there on his previous CXRs.
I see no obvious PTX. SQ air about the same as before. Since CXR remains stable and he has no SOB or CP, will keep his chest tube to H2O seal overnight
Continue close observation
Physician Progress Note
Subjective
No c/o
Objective
Vital Signs
Temp Pulse Resp BP Pulse Ox
98.4 F 70 16 132/78 97
07/13/24 15:10 07/13/24 15:10 07/13/24 15:10 07/13/24 15:10 07/13/24 15:10
Lab Results
07/05/24 06:00
07/05/24 06:00
Lungs - CTA x2
CHest tube with still small leak
[2024-07-13 23:45] VITALS: BP 150/85
[2024-07-14] MEDS: TYLENOL PO ×2 (00:58→04:14)
[2024-07-14] MEDS: SYNTHROID 50 MCG PO (05:07)
[2024-07-14 07:10] VITALS: BP 145/90
[2024-07-14] MEDS: LIPITOR 10 MG PO (08:31)
[2024-07-14] MEDS: TYLENOL 650 MG PO ×4 (08:31→20:51)
[2024-07-14] MEDS: HEPARIN 5000 UNITS SC (08:32)
[2024-07-14] MEDS: PEPCID 20 MG PO (08:32)
[2024-07-14] MEDS: COLACE 100 MG PO ×2 (08:32→20:51)
[2024-07-14] MEDS: NEURONTIN 200 MG PO ×3 (08:32→20:51)
--- NOTE | 2024-07-14 11:49 | CM ---
Chart reviewed. Met with pt
CT to water seal
Daily chest Xray
CM following for discharge needs
Plan - anticipate home no needs when medically ready
--- NOTE | 2024-07-14 16:00 | W.PN.GENERIC ---
Addendum entered and electronically signed by Salvador Clemens MD 08/01/24 09:09:
The final pathology revealed a 4.2 cm moderately differentiated SCC with two positive N1 lymph nodes and all negative N2 lymph nodes.
Original Note:
Assessment / Plan
-
S/p Right upper lobectomy
Stable
The air leak has definitively decreased
Will continue chest tube on H2O seal
OOB ambulate
Physician Progress Note
Subjective
Discouraged due to persistent air leak. He had no c/p
Objective
Vital Signs
Temp Pulse Resp BP Pulse Ox
98.3 F 70 16 145/90 97
07/14/24 07:10 07/14/24 07:10 07/14/24 07:10 07/14/24 07:10 07/14/24 08:00
Lab Results
07/05/24 06:00
07/05/24 06:00
Lungs - CTA x 2
Chest tube with small intermittent air leak
[2024-07-14 23:17] VITALS: BP 117/74
[2024-07-15] MEDS: SYNTHROID 50 MCG PO (05:51)
[2024-07-15] MEDS: TYLENOL 650 MG PO ×5 (05:51→20:36)
[2024-07-15 07:05] VITALS: BP 130/93
[2024-07-15] MEDS: LIPITOR 10 MG PO (08:13)
[2024-07-15] MEDS: COLACE 100 MG PO ×2 (08:13→20:36)
[2024-07-15] MEDS: PEPCID 20 MG PO (08:13)
[2024-07-15] MEDS: NEURONTIN 200 MG PO ×3 (08:13→21:54)
[2024-07-15 15:10] VITALS: BP 109/80
[2024-07-15 15:32] VITALS: BP 109/80
[2024-07-15] MEDS: SENOKOT 8.6 MG PO (21:54)
[2024-07-15 22:38] VITALS: BP 120/80
[2024-07-15] MEDS: TYLENOL PO ×2 (23:41)
[2024-07-16] MEDS: TYLENOL PO (04:00)
[2024-07-16] MEDS: SYNTHROID 50 MCG PO (06:26)
[2024-07-16] MEDS: TYLENOL 650 MG PO ×2 (06:30→13:25)
[2024-07-16 07:00] VITALS: BP 113/78
[2024-07-16] MEDS: NEURONTIN 200 MG PO (08:23)
[2024-07-16] MEDS: PEPCID 20 MG PO (08:23)
[2024-07-16] MEDS: LIPITOR 10 MG PO (08:24)
[2024-07-16] MEDS: SENOKOT-S 1 TABLET PO (08:24)
[2024-07-16] MEDS: TORADOL 30 MG IV (09:55)
[2024-07-16] MEDS: ANCEF 10 IV (09:56)
[2024-07-16] MEDS: FLUSH (NSS) 2 FLUSH IV (09:57)
--- NOTE | 2024-07-16 12:16 | W.DS.TRANS ---
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
-
Discharge Instructions:
Sleep Apnea Risk Low
Discharge Diagnosis/Procedures RIGHT UPPER LOBE LUNG CANCER
Diet No restrictions
Activity No strenuous activity,As tolerated
Driving Restrictions No driving for 1 week
Bathing Restrictions OK to Shower
Instructions:
Stand-Alone Forms:
Changes to Home Medications: Yes
Discharge Medications:
DC Medications w/original date entered in [employer]
ascorbic acid (vitamin C) 500 mg tablet,extended release (Vitamin C ER) 500 mg PO DAILY 12/03/23
levothyroxine 50 mcg tablet 50 mcg PO DAILY 12/03/23
multivitamin 1 tab PO DAILY 12/03/23
atorvastatin 10 mg tablet (Lipitor) 10 mg PO DAILY 06/27/24
vitamin E 1 cap PO DAILY 06/27/24
gabapentin 100 mg capsule 200 mg (2 x 100 mg) PO TID Pain #0 caps 07/16/24
Home Medication Changes
Pending Results: No
--- NOTE | 2024-07-16 12:25 | CM ---
CM reviewed chart and noted dc order
Bedside meeting with pt
No dc needs noted
Pt will call his sister for a ride home
Discharge Disposition- home, no needs- family transport
[2024-07-16] MEDS: FLUAD (65 yr+) 2024-2025 FORMULA 0.5 ML IM (13:23)
[2024-07-16 13:28] VITALS: BP 141/88
--- NOTE | 2024-07-18 08:58 | PN.CDI ---
CDI
- -
CDI:
Physician Documentation Request
Admit Date: 07/04/24 08:54
Dear Doctor Sarath,
Please review the following and provide your response in the progress notes.
Clinical Indicators:
The diagnosis of 'Two lymph nodes positive for lymph node metastasis (09/12)' was included in the signed path report.
Please indicate in your progress notes if you are in agreement that the above diagnosis is valid for this patient:
____ - Lymph node metastasis is a valid diagnosis (Please include it in your progress notes)
____ - Lymph node metastasis is not a valid diagnosis for this patient
____ - Lymph node metastasis is not yet confirmed but remains a suspected condition
____ - Other
____ - Unable to determine
Use of terms such as suspected, likely, concern for, or probable are acceptable for a diagnosis that is being evaluated, monitored or treated as if it exists and can be coded in the inpatient setting, when documented at the time of discharge.
Thank you,
Ami Cnaela
Marketing Secretary
Please use your independent medical judgment in providing your response.
== END 2024-07-16 14:00 | disposition home or self-care (01) | DRG 164 ==
LOC: 2 SOUTH 08:54
PROVIDERS: ADMITTING PHYSICIAN Surgery; FAMILY PHYSICIAN Student in an Organized Health Care Education/Training Program; OTHER PHYSICIAN Internal Medicine Critical Care Medicine
PROC: 0BTC0ZZ Resection of Right Upper Lung Lobe, Open Approach (ICD-10-PCS; 2024-07-04)
PROC: 07BB0ZZ Excision of Mesenteric Lymphatic, Open Approach (ICD-10-PCS; 2024-07-04)
PROC: 3E02340 Introduction of Influenza Vaccine into Muscle, Percutaneous Approach (ICD-10-PCS; 2024-07-16)
DX: C34.11 Malignant neoplasm of upper lobe, right bronchus or lung (principal); C77.1 Secondary and unspecified malignant neoplasm of intrathoracic lymph nodes; J93.82 Other air leak; J45.20 Mild intermittent asthma, uncomplicated; Z77.090 Contact with and (suspected) exposure to asbestos; D64.9 Anemia, unspecified; R73.9 Hyperglycemia, unspecified; Z23 Encounter for immunization; Z87.891 Personal history of nicotine dependence
CPT/HCPCS: 88305; 88309; 88312; 36415; 71045; 71046; 80048; 80053; 85027; 85610; 85730; 86850; 86900; 86901; 88313; 88342; 90662; 97116; 97162; 97165; C1776; C9250; G0008

== ENCOUNTER → 2024-07-18 14:48 | Outpatient (REF) | payer OTHER, SELFPAY ==
[2024-07-18 15:10] LABS: % Basophils 0.2 % (0-2); % Eosinophils 1.5 % (0-6); % Immature Granulocytes 0.6 % (0-0.5); % Lymphocytes 9.2 % (20.5-51.1); % Monocytes 8.2 % (1.7-9.3); % Neutrophils 80.3 % (42.2-75.2); Absolute Eosinophils 0.2 10^3/uL (0-0.7); Absolute Immature Granulocytes 0.1 10^3/uL (0-0.05); Absolute Lymphocytes 1.2 10^3/uL (1.2-3.4); Absolute Monocytes 1.1 10^3/uL (0.1-0.6); Absolute Neutrophils 10.3 10^3/uL (1.4-6.5); Hematocrit 32.8 % (39.0-52.0); Hemoglobin 11.1 g/dL (13.0-18.0); Mean Corp Hgb Conc. 33.8 g/dL (33.0-37.0); Mean Corpuscular Hgb 37.1 pg (27.0-31.0); Mean Corpuscular Volume 109.7 fL (80.0-94.0); Nucleated Red Blood Cells % 0 % (-); Platelet Count 244 10^3/uL (130-400); Red Blood Cell Count 2.99 10^6/uL (4.70-6.10); Red Cell Dist. Width 12.5 % (11.5-14.5); White Blood Cell Count 12.8 10^3/uL (4.8-10.8)
[2024-07-18 15:42] LABS: ALT (SGPT) 66 U/L (0-50); AST (SGOT) 114 U/L (17-59); Albumin 3.8 g/dl (3.5-5.0); Alkaline Phosphatase 106 U/L (38-126); Blood Urea Nitrogen 20 mg/dl (9-20); Calcium 8.1 mg/dl (8.4-10.2); Carbon Dioxide 26 mmol/L (22-30); Chloride 96 mmol/L (98-107); Glucose 182 mg/dl (70-99); Potassium 4.6 mmol/L (3.5-5.1); Sodium 131 mmol/L (135-145); Total Bilirubin 0.4 mg/dl (0.2-1.3); Total Protein 7.1 g/dl (6.3-8.2); eGFR 49.47
== END ==
LOC: REG 14:48
PROVIDERS: ATTENDING PHYSICIAN Nurse Practitioner Adult Health; FAMILY PHYSICIAN Student in an Organized Health Care Education/Training Program
DX: C34.11 Malignant neoplasm of upper lobe, right bronchus or lung (principal); D69.6 Thrombocytopenia, unspecified; D64.9 Anemia, unspecified; D70.9 Neutropenia, unspecified
CPT/HCPCS: 36415; 80053; 84443; 85025

== ENCOUNTER → 2024-08-09 10:42 | Outpatient (REF) | payer OTHER, SELFPAY ==
[2024-08-09 12:20] LABS: Hematocrit 34.3 % (39.0-52.0); Hemoglobin 11.2 g/dL (13.0-18.0); Mean Corp Hgb Conc. 32.7 g/dL (33.0-37.0); Mean Corpuscular Hgb 36.1 pg (27.0-31.0); Mean Corpuscular Volume 110.6 fL (80.0-94.0); Mean Platelet Volume 9.4 fL (7.4-10.4); Platelet Count 199 10^3/uL (130-400); White Blood Cell Count 5.3 10^3/uL (4.8-10.8)
[2024-08-09 12:42] LABS: ALT (SGPT) 22 U/L (0-50); AST (SGOT) 30 U/L (17-59); Albumin 4.1 g/dl (3.5-5.0); Alkaline Phosphatase 100 U/L (38-126); Blood Urea Nitrogen 15 mg/dl (9-20); Calcium 8.6 mg/dl (8.4-10.2); Carbon Dioxide 32 mmol/L (22-30); Chloride 102 mmol/L (98-107); Glucose 126 mg/dl (70-99); Potassium 4.2 mmol/L (3.5-5.1); Sodium 140 mmol/L (135-145); Total Bilirubin 0.2 mg/dl (0.2-1.3); Total Protein 7.5 g/dl (6.3-8.2); eGFR 58.73
[2024-08-09 14:21] LABS: Free T4 0.74 ng/dl (0.78-2.19)
[2024-08-09 14:39] LABS: % Basophils 0.4 % (0-2); % Eosinophils 7.8 % (0-6); % Immature Granulocytes 0.4 % (0-0.5); % Lymphocytes 46.2 % (20.5-51.1); % Monocytes 10.1 % (1.7-9.3); % Neutrophils 35.1 % (42.2-75.2); Absolute Eosinophils 0.4 10^3/uL (0-0.7); Absolute Lymphocytes 2.4 10^3/uL (1.2-3.4); Absolute Monocytes 0.5 10^3/uL (0.1-0.6); Absolute Neutrophils 1.9 10^3/uL (1.4-6.5); Nucleated Red Blood Cells % 0 % (-)
== END ==
LOC: REG 10:42
PROVIDERS: ATTENDING PHYSICIAN Internal Medicine Hematology & Oncology; FAMILY PHYSICIAN Student in an Organized Health Care Education/Training Program
DX: C34.11 Malignant neoplasm of upper lobe, right bronchus or lung (principal); D69.6 Thrombocytopenia, unspecified; D64.9 Anemia, unspecified; D70.9 Neutropenia, unspecified
CPT/HCPCS: 36415; 80053; 84439; 84443; 85025

== ENCOUNTER → 2024-08-31 10:22 | Outpatient (REF) | payer OTHER, SELFPAY ==
[2024-08-31 11:05] LABS: % Basophils 0.2 % (0-2); % Eosinophils 6.2 % (0-6); % Immature Granulocytes 0.2 % (0-0.5); % Lymphocytes 33.9 % (20.5-51.1); % Monocytes 14.4 % (1.7-9.3); % Neutrophils 45.1 % (42.2-75.2); Absolute Eosinophils 0.3 10^3/uL (0-0.7); Absolute Lymphocytes 1.6 10^3/uL (1.2-3.4); Absolute Monocytes 0.7 10^3/uL (0.1-0.6); Absolute Neutrophils 2.1 10^3/uL (1.4-6.5); Hematocrit 33.1 % (39.0-52.0); Hemoglobin 11.1 g/dL (13.0-18.0); Mean Corp Hgb Conc. 33.5 g/dL (33.0-37.0); Mean Corpuscular Hgb 36.5 pg (27.0-31.0); Mean Corpuscular Volume 108.9 fL (80.0-94.0); Mean Platelet Volume 9.3 fL (7.4-10.4); Nucleated Red Blood Cells % 0 % (-); Platelet Count 180 10^3/uL (130-400); Red Blood Cell Count 3.04 10^6/uL (4.70-6.10); Red Cell Dist. Width 13.1 % (11.5-14.5); White Blood Cell Count 4.7 10^3/uL (4.8-10.8)
[2024-08-31 12:12] LABS: ALT (SGPT) 20 U/L (0-50); AST (SGOT) 29 U/L (17-59); Albumin 4.4 g/dl (3.5-5.0); Alkaline Phosphatase 94 U/L (38-126); Blood Urea Nitrogen 16 mg/dl (9-20); Calcium 8.7 mg/dl (8.4-10.2); Carbon Dioxide 30 mmol/L (22-30); Chloride 103 mmol/L (98-107); Glucose 114 mg/dl (70-99); Potassium 4.1 mmol/L (3.5-5.1); Sodium 138 mmol/L (135-145); Total Bilirubin 0.4 mg/dl (0.2-1.3); Total Protein 7.3 g/dl (6.3-8.2); eGFR 58.73
[2024-08-31 12:29] LABS: Free T4 1.24 ng/dl (0.78-2.19)
[2024-09-01 20:46] LABS: Total T3 (Sendout) 91 ng/dL (80-200)
== END ==
LOC: REG 10:22
PROVIDERS: ATTENDING PHYSICIAN Internal Medicine Hematology & Oncology
DX: C34.11 Malignant neoplasm of upper lobe, right bronchus or lung (principal); D69.6 Thrombocytopenia, unspecified; D64.9 Anemia, unspecified; D70.9 Neutropenia, unspecified
CPT/HCPCS: 36415; 80053; 84439; 84443; 84480; 85025

== ENCOUNTER → 2024-09-21 10:36 | Outpatient (REF) | payer OTHER, SELFPAY ==
[2024-09-21 11:04] LABS: % Basophils 0.6 % (0-2); % Eosinophils 8.9 % (0-6); % Immature Granulocytes 0.2 % (0-0.5); % Lymphocytes 35.8 % (20.5-51.1); % Monocytes 11.7 % (1.7-9.3); % Neutrophils 42.8 % (42.2-75.2); Absolute Eosinophils 0.5 10^3/uL (0-0.7); Absolute Lymphocytes 1.9 10^3/uL (1.2-3.4); Absolute Monocytes 0.6 10^3/uL (0.1-0.6); Absolute Neutrophils 2.3 10^3/uL (1.4-6.5); Hematocrit 34.2 % (39.0-52.0); Hemoglobin 11.4 g/dL (13.0-18.0); Mean Corp Hgb Conc. 33.3 g/dL (33.0-37.0); Mean Corpuscular Hgb 36.8 pg (27.0-31.0); Mean Corpuscular Volume 110.3 fL (80.0-94.0); Mean Platelet Volume 9.2 fL (7.4-10.4); Nucleated Red Blood Cells % 0 % (-); Platelet Count 177 10^3/uL (130-400); Red Cell Dist. Width 12.6 % (11.5-14.5); White Blood Cell Count 5.4 10^3/uL (4.8-10.8)
[2024-09-21 11:22] LABS: ALT (SGPT) 19 U/L (0-50); AST (SGOT) 26 U/L (17-59); Albumin 4.4 g/dl (3.5-5.0); Alkaline Phosphatase 87 U/L (38-126); Blood Urea Nitrogen 12 mg/dl (9-20); Calcium 8.5 mg/dl (8.4-10.2); Carbon Dioxide 30 mmol/L (22-30); Chloride 103 mmol/L (98-107); Glucose 134 mg/dl (70-99); Sodium 141 mmol/L (135-145); Total Bilirubin 0.7 mg/dl (0.2-1.3); Total Protein 7.4 g/dl (6.3-8.2); eGFR 58.73
[2024-09-22 13:41] LABS: Total T3 (Sendout) 91 ng/dL (80-200)
== END ==
LOC: REG 10:36
PROVIDERS: ATTENDING PHYSICIAN Internal Medicine Hematology & Oncology; FAMILY PHYSICIAN Student in an Organized Health Care Education/Training Program
DX: C34.11 Malignant neoplasm of upper lobe, right bronchus or lung (principal); D69.6 Thrombocytopenia, unspecified; D64.9 Anemia, unspecified; D70.9 Neutropenia, unspecified
CPT/HCPCS: 36415; 80053; 84439; 84443; 84480; 85025

== ENCOUNTER → 2024-11-06 09:23 | Outpatient (REF) | payer OTHER, SELFPAY ==
[2024-11-06 10:44] LABS: % Basophils 0.4 % (0-2); % Eosinophils 5.7 % (0-6); % Immature Granulocytes 0.2 % (0-0.5); % Lymphocytes 29.9 % (20.5-51.1); % Monocytes 12.1 % (1.7-9.3); % Neutrophils 51.7 % (42.2-75.2); Absolute Eosinophils 0.3 10^3/uL (0-0.7); Absolute Lymphocytes 1.5 10^3/uL (1.2-3.4); Absolute Monocytes 0.6 10^3/uL (0.1-0.6); Absolute Neutrophils 2.5 10^3/uL (1.4-6.5); Hematocrit 35.6 % (39.0-52.0); Mean Corp Hgb Conc. 33.7 g/dL (33.0-37.0); Mean Corpuscular Hgb 35.9 pg (27.0-31.0); Mean Corpuscular Volume 106.6 fL (80.0-94.0); Mean Platelet Volume 9.5 fL (7.4-10.4); Nucleated Red Blood Cells % 0 % (-); Platelet Count 188 10^3/uL (130-400); Red Blood Cell Count 3.34 10^6/uL (4.70-6.10); Red Cell Dist. Width 11.9 % (11.5-14.5); White Blood Cell Count 4.9 10^3/uL (4.8-10.8)
[2024-11-06 11:11] LABS: ALT (SGPT) 25 U/L (0-50); AST (SGOT) 30 U/L (17-59); Alkaline Phosphatase 103 U/L (38-126); Blood Urea Nitrogen 18 mg/dl (9-20); Calcium 9.1 mg/dl (8.4-10.2); Carbon Dioxide 28 mmol/L (22-30); Chloride 107 mmol/L (98-107); Glucose 113 mg/dl (70-99); Potassium 4.5 mmol/L (3.5-5.1); Sodium 144 mmol/L (135-145); Total Bilirubin 0.4 mg/dl (0.2-1.3); Total Protein 7.2 g/dl (6.3-8.2); eGFR > 60.00
[2024-11-06 11:25] LABS: Free T4 1.92 ng/dl (0.78-2.19)
[2024-11-06 11:39] LABS: TSH 3.49 uIU/ml (0.47-4.68)
[2024-11-07 12:40] LABS: Total T3 (Sendout) 110 ng/dL (80-200)
== END ==
LOC: REG 09:23
PROVIDERS: ATTENDING PHYSICIAN Internal Medicine Hematology & Oncology; FAMILY PHYSICIAN Student in an Organized Health Care Education/Training Program
DX: C34.11 Malignant neoplasm of upper lobe, right bronchus or lung (principal); D69.6 Thrombocytopenia, unspecified; D64.9 Anemia, unspecified; D70.9 Neutropenia, unspecified
CPT/HCPCS: 36415; 80053; 84439; 84443; 84480; 85025

== ENCOUNTER → 2024-11-27 10:04 | Outpatient (REF) | payer OTHER, SELFPAY ==
[2024-11-27 10:51] LABS: % Basophils 0.4 % (0-2); % Immature Granulocytes 0.2 % (0-0.5); % Lymphocytes 28.9 % (20.5-51.1); % Monocytes 11.3 % (1.7-9.3); % Neutrophils 54.2 % (42.2-75.2); Absolute Eosinophils 0.3 10^3/uL (0-0.7); Absolute Lymphocytes 1.5 10^3/uL (1.2-3.4); Absolute Monocytes 0.6 10^3/uL (0.1-0.6); Absolute Neutrophils 2.8 10^3/uL (1.4-6.5); Hematocrit 38.1 % (39.0-52.0); Hemoglobin 12.8 g/dL (13.0-18.0); Mean Corp Hgb Conc. 33.6 g/dL (33.0-37.0); Mean Corpuscular Hgb 35.5 pg (27.0-31.0); Mean Corpuscular Volume 105.5 fL (80.0-94.0); Mean Platelet Volume 9.3 fL (7.4-10.4); Nucleated Red Blood Cells % 0 % (-); Platelet Count 201 10^3/uL (130-400); Red Blood Cell Count 3.61 10^6/uL (4.70-6.10); Red Cell Dist. Width 11.9 % (11.5-14.5); White Blood Cell Count 5.2 10^3/uL (4.8-10.8)
[2024-11-27 12:27] LABS: ALT (SGPT) 25 U/L (0-50); AST (SGOT) 27 U/L (17-59); Alkaline Phosphatase 83 U/L (38-126); Blood Urea Nitrogen 16 mg/dl (9-20); Calcium 9.1 mg/dl (8.4-10.2); Carbon Dioxide 29 mmol/L (22-30); Chloride 106 mmol/L (98-107); Glucose 125 mg/dl (70-99); Potassium 4.8 mmol/L (3.5-5.1); Sodium 144 mmol/L (135-145); Total Bilirubin 0.5 mg/dl (0.2-1.3); Total Protein 7.1 g/dl (6.3-8.2); eGFR 58.73
[2024-11-27 12:48] LABS: TSH 1.78 uIU/ml (0.47-4.68)
[2024-11-28 13:49] LABS: Total T3 (Sendout) 117 ng/dL (80-200)
== END ==
LOC: REG 10:04
PROVIDERS: ATTENDING PHYSICIAN Internal Medicine Hematology & Oncology; FAMILY PHYSICIAN Student in an Organized Health Care Education/Training Program
DX: C34.11 Malignant neoplasm of upper lobe, right bronchus or lung (principal); D69.6 Thrombocytopenia, unspecified; D64.9 Anemia, unspecified; D70.9 Neutropenia, unspecified
CPT/HCPCS: 36415; 80053; 84439; 84443; 84480; 85025

== ENCOUNTER → 2024-12-11 10:00 | Outpatient (REF) | payer OTHER, SELFPAY ==
[2024-12-11 10:28] LABS: % Basophils 0.2 % (0-2); % Eosinophils 4.4 % (0-6); % Immature Granulocytes 0.4 % (0-0.5); % Lymphocytes 33.2 % (20.5-51.1); % Monocytes 13.9 % (1.7-9.3); % Neutrophils 47.9 % (42.2-75.2); Absolute Eosinophils 0.2 10^3/uL (0-0.7); Absolute Lymphocytes 1.8 10^3/uL (1.2-3.4); Absolute Monocytes 0.7 10^3/uL (0.1-0.6); Absolute Neutrophils 2.5 10^3/uL (1.4-6.5); Hematocrit 37.8 % (39.0-52.0); Hemoglobin 12.7 g/dL (13.0-18.0); Mean Corp Hgb Conc. 33.6 g/dL (33.0-37.0); Mean Corpuscular Hgb 34.7 pg (27.0-31.0); Mean Corpuscular Volume 103.3 fL (80.0-94.0); Mean Platelet Volume 9.2 fL (7.4-10.4); Nucleated Red Blood Cells % 0 % (-); Platelet Count 187 10^3/uL (130-400); Red Blood Cell Count 3.66 10^6/uL (4.70-6.10); Red Cell Dist. Width 11.9 % (11.5-14.5); White Blood Cell Count 5.3 10^3/uL (4.8-10.8)
[2024-12-11 11:05] LABS: ALT (SGPT) 23 U/L (0-50); AST (SGOT) 25 U/L (17-59); Albumin 4.3 g/dl (3.5-5.0); Alkaline Phosphatase 88 U/L (38-126); Blood Urea Nitrogen 16 mg/dl (9-20); Calcium 8.7 mg/dl (8.4-10.2); Carbon Dioxide 29 mmol/L (22-30); Chloride 106 mmol/L (98-107); Glucose 144 mg/dl (70-99); Potassium 4.2 mmol/L (3.5-5.1); Sodium 144 mmol/L (135-145); Total Bilirubin 0.5 mg/dl (0.2-1.3); Total Protein 7.1 g/dl (6.3-8.2); eGFR 53.74
[2024-12-11 11:54] LABS: Free T4 1.83 ng/dl (0.78-2.19)
[2024-12-12 16:30] LABS: Total T3 (Sendout) 124 ng/dL (80-200)
== END ==
LOC: REG 10:00
PROVIDERS: ATTENDING PHYSICIAN Internal Medicine Hematology & Oncology; FAMILY PHYSICIAN Student in an Organized Health Care Education/Training Program
DX: C34.11 Malignant neoplasm of upper lobe, right bronchus or lung (principal); D69.6 Thrombocytopenia, unspecified; D64.9 Anemia, unspecified; D70.9 Neutropenia, unspecified
CPT/HCPCS: 36415; 80053; 84439; 84443; 84480; 85025

== ENCOUNTER → 2024-12-18 08:42 | Outpatient (REF) | payer OTHER, SELFPAY ==
[2024-12-18 09:59] LABS: % Basophils 0.5 % (0-2); % Eosinophils 2.7 % (0-6); % Immature Granulocytes 0.7 % (0-0.5); % Lymphocytes 22.9 % (20.5-51.1); % Monocytes 3.9 % (1.7-9.3); % Neutrophils 69.3 % (42.2-75.2); Absolute Eosinophils 0.1 10^3/uL (0-0.7); Absolute Lymphocytes 0.9 10^3/uL (1.2-3.4); Absolute Monocytes 0.2 10^3/uL (0.1-0.6); Absolute Neutrophils 2.9 10^3/uL (1.4-6.5); Hemoglobin 12.4 g/dL (13.0-18.0); Mean Corp Hgb Conc. 33.5 g/dL (33.0-37.0); Mean Corpuscular Volume 104.5 fL (80.0-94.0); Mean Platelet Volume 9.9 fL (7.4-10.4); Nucleated Red Blood Cells % 0 % (-); Platelet Count 159 10^3/uL (130-400); Red Blood Cell Count 3.54 10^6/uL (4.70-6.10); Red Cell Dist. Width 11.7 % (11.5-14.5); White Blood Cell Count 4.1 10^3/uL (4.8-10.8)
[2024-12-18 10:25] LABS: ALT (SGPT) 19 U/L (0-50); AST (SGOT) 22 U/L (17-59); Albumin 4.2 g/dl (3.5-5.0); Alkaline Phosphatase 82 U/L (38-126); Blood Urea Nitrogen 17 mg/dl (9-20); Calcium 8.9 mg/dl (8.4-10.2); Carbon Dioxide 29 mmol/L (22-30); Chloride 108 mmol/L (98-107); Glucose 134 mg/dl (70-99); Potassium 4.7 mmol/L (3.5-5.1); Sodium 142 mmol/L (135-145); Total Bilirubin 0.6 mg/dl (0.2-1.3); eGFR > 60.00
== END ==
LOC: REG 08:42
PROVIDERS: ATTENDING PHYSICIAN Internal Medicine Hematology & Oncology; FAMILY PHYSICIAN Student in an Organized Health Care Education/Training Program
DX: C34.11 Malignant neoplasm of upper lobe, right bronchus or lung (principal)
CPT/HCPCS: 36415; 80053; 85025

== ENCOUNTER → 2024-12-26 10:11 | Outpatient (REF) | payer OTHER, SELFPAY ==
[2024-12-26 11:54] LABS: % Basophils 0.5 % (0-2); % Eosinophils 1.9 % (0-6); % Immature Granulocytes 0.5 % (0-0.5); % Lymphocytes 22.9 % (20.5-51.1); % Neutrophils 65.2 % (42.2-75.2); Absolute Lymphocytes 0.5 10^3/uL (1.2-3.4); Absolute Monocytes 0.2 10^3/uL (0.1-0.6); Absolute Neutrophils 1.4 10^3/uL (1.4-6.5); Hematocrit 33.2 % (39.0-52.0); Hemoglobin 11.3 g/dL (13.0-18.0); Mean Corpuscular Hgb 35.2 pg (27.0-31.0); Mean Corpuscular Volume 103.4 fL (80.0-94.0); Mean Platelet Volume 10.5 fL (7.4-10.4); Nucleated Red Blood Cells % 0 % (-); Platelet Count 144 10^3/uL (130-400); Red Blood Cell Count 3.21 10^6/uL (4.70-6.10); Red Cell Dist. Width 11.6 % (11.5-14.5); White Blood Cell Count 2.1 10^3/uL (4.8-10.8)
[2024-12-26 12:30] LABS: ALT (SGPT) 17 U/L (0-50); AST (SGOT) 21 U/L (17-59); Albumin 4.1 g/dl (3.5-5.0); Alkaline Phosphatase 85 U/L (38-126); Blood Urea Nitrogen 14 mg/dl (9-20); Calcium 8.5 mg/dl (8.4-10.2); Carbon Dioxide 27 mmol/L (22-30); Chloride 109 mmol/L (98-107); Glucose 109 mg/dl (70-99); Potassium 4.8 mmol/L (3.5-5.1); Sodium 142 mmol/L (135-145); Total Bilirubin 0.5 mg/dl (0.2-1.3); Total Protein 7.2 g/dl (6.3-8.2); eGFR 58.73
== END ==
LOC: REG 10:11
PROVIDERS: ATTENDING PHYSICIAN Internal Medicine Hematology & Oncology; FAMILY PHYSICIAN Student in an Organized Health Care Education/Training Program
DX: C34.11 Malignant neoplasm of upper lobe, right bronchus or lung (principal)
CPT/HCPCS: 36415; 80053; 85025

== ENCOUNTER → 2025-01-01 10:29 | Outpatient (REF) | payer OTHER, SELFPAY ==
[2025-01-01 12:21] LABS: % Basophils 0.5 % (0-2); % Eosinophils 0.5 % (0-6); % Immature Granulocytes 0.9 % (0-0.5); % Monocytes 8.1 % (1.7-9.3); Absolute Lymphocytes 0.3 10^3/uL (1.2-3.4); Absolute Monocytes 0.2 10^3/uL (0.1-0.6); Absolute Neutrophils 1.7 10^3/uL (1.4-6.5); Hematocrit 33.9 % (39.0-52.0); Hemoglobin 11.5 g/dL (13.0-18.0); Mean Corp Hgb Conc. 33.9 g/dL (33.0-37.0); Mean Corpuscular Hgb 35.2 pg (27.0-31.0); Mean Corpuscular Volume 103.7 fL (80.0-94.0); Mean Platelet Volume 10.1 fL (7.4-10.4); Nucleated Red Blood Cells % 0 % (-); Platelet Count 149 10^3/uL (130-400); Red Blood Cell Count 3.27 10^6/uL (4.70-6.10); White Blood Cell Count 2.2 10^3/uL (4.8-10.8)
[2025-01-01 13:13] LABS: ALT (SGPT) 16 U/L (0-50); AST (SGOT) 20 U/L (17-59); Albumin 4.1 g/dl (3.5-5.0); Alkaline Phosphatase 89 U/L (38-126); Blood Urea Nitrogen 17 mg/dl (9-20); Calcium 8.5 mg/dl (8.4-10.2); Carbon Dioxide 26 mmol/L (22-30); Chloride 109 mmol/L (98-107); Glucose 129 mg/dl (70-99); Potassium 4.8 mmol/L (3.5-5.1); Sodium 143 mmol/L (135-145); Total Bilirubin 0.9 mg/dl (0.2-1.3); Total Protein 7.1 g/dl (6.3-8.2); eGFR 53.74
== END ==
LOC: REG 10:29
PROVIDERS: ATTENDING PHYSICIAN Internal Medicine Hematology & Oncology; FAMILY PHYSICIAN Student in an Organized Health Care Education/Training Program
DX: C34.11 Malignant neoplasm of upper lobe, right bronchus or lung (principal)
CPT/HCPCS: 36415; 80053; 85025

== ENCOUNTER → 2025-01-08 09:10 | Outpatient (REF) | payer OTHER, SELFPAY ==
[2025-01-08 10:32] LABS: ALT (SGPT) 17 U/L (0-50); AST (SGOT) 21 U/L (17-59); Albumin 4.1 g/dl (3.5-5.0); Alkaline Phosphatase 90 U/L (38-126); Blood Urea Nitrogen 22 mg/dl (9-20); Calcium 8.9 mg/dl (8.4-10.2); Carbon Dioxide 22 mmol/L (22-30); Chloride 109 mmol/L (98-107); Glucose 143 mg/dl (70-99); Potassium 4.4 mmol/L (3.5-5.1); Sodium 141 mmol/L (135-145); Total Bilirubin 1.1 mg/dl (0.2-1.3); Total Protein 7.3 g/dl (6.3-8.2); eGFR 58.73
[2025-01-08 11:00] LABS: % Basophils 0.5 % (0-2); % Eosinophils 0.5 % (0-6); % Immature Granulocytes 0.5 % (0-0.5); % Monocytes 3.5 % (1.7-9.3); Absolute Lymphocytes 0.2 10^3/uL (1.2-3.4); Absolute Monocytes 0.1 10^3/uL (0.1-0.6); Absolute Neutrophils 1.7 10^3/uL (1.4-6.5); Hematocrit 31.7 % (39.0-52.0); Mean Corp Hgb Conc. 34.7 g/dL (33.0-37.0); Mean Corpuscular Hgb 35.3 pg (27.0-31.0); Mean Corpuscular Volume 101.6 fL (80.0-94.0); Mean Platelet Volume 10.5 fL (7.4-10.4); Nucleated Red Blood Cells % 0 % (-); Platelet Count 96 10^3/uL (130-400); Red Blood Cell Count 3.12 10^6/uL (4.70-6.10)
== END ==
LOC: REG 09:10
PROVIDERS: ATTENDING PHYSICIAN Internal Medicine Hematology & Oncology; FAMILY PHYSICIAN Student in an Organized Health Care Education/Training Program
DX: C34.11 Malignant neoplasm of upper lobe, right bronchus or lung (principal)
CPT/HCPCS: 36415; 80053; 85025

== ENCOUNTER 2025-01-15 09:24 | Emergency (ER) | payer OTHER, SELFPAY ==
[2025-01-15 09:26] VITALS: BP 135/97; BMI 28.9
[2025-01-15 10:00] VITALS: BP 133/98
[2025-01-15] MEDS: NSS 500 IV (10:09)
[2025-01-15 10:19] LABS: Hematocrit 27.9 % (39.0-52.0); Hemoglobin 9.9 g/dL (13.0-18.0); Mean Corp Hgb Conc. 35.5 g/dL (33.0-37.0); Mean Corpuscular Hgb 35.2 pg (27.0-31.0); Mean Corpuscular Volume 99.3 fL (80.0-94.0); Red Blood Cell Count 2.81 10^6/uL (4.70-6.10); White Blood Cell Count 0.9 10^3/uL (4.8-10.8)
--- NOTE | 2025-01-15 10:24 | ED.GENMED ---
History of Present Illness
General
Chief Complaint: Breathing Problem
Source: patient
Exam Limitations: none
Time Seen by Provider: 01/15/25 09:43
Nursing documentation reviewed up to this point in time: agreed with
History of Present Illness
History of Present Illness:
Patient with history of lung cancer, currently receiving chemotherapy and radiation therapy, presents to ED secondary to sudden onset of shortness of breath and generalized weakness, when he presented to outpatient facility this morning for
scheduled radiation therapy. Per paramedics, patient was found to be in mild respiratory distress and tachycardic. Since then, symptoms have gradually improved. At the time of my evaluation ED, patient is at baseline, without any complaints.
Denies recent illness. Denies fever or chills. Denies vomiting or diarrhea. Denies recent travel. Denies back pain. Denies leg pain or swelling. Denies previous history of blood clots. Patient states that she has been drinking fluids, but has
had decreased appetite.
Review of Systems
Review of Systems
Allergies reviewed?: Yes
All Other Systems: ROS reviewed and negative except as documented in HPI and ROS
Constitutional: Reports no symptoms; Denies fever
Respiratory: Reports cough and trouble breathing
Cardiac: Reports no symptoms; Denies chest pain, palpitations or syncope
ABD/GI: Reports no symptoms; Denies vomiting or diarrhea
Musculoskeletal: Reports no symptoms
Skin: Reports no symptoms
Neurological: Denies dizzy, headache or weakness
Phy Exam
Physical Exam
Physical Exam:
Physical Exam
General: no apparent distress, not acutely ill. afebrile
Head: nc/at. eomi
Neck: supple. normal range of motion.
Heart: s1/s2 regular rate and rhythm
Lungs: no acute respiratory distress. clear bilaterally
Abdomen: normal bowel sounds. not tender.
Neuro: alert and oriented x 3. no focal neurological deficits
Skin: no rash
Psychiatric: well kept. interactive and cooperative
Extremities: no edema. no calf tenderness.
Scores
Heart Failure Risk
Heart Failure Risk Score: Not Applicable
Course
Orders/Labs/Results
Orders:
Orders
01/15/25 09:28
EKG [Electrocardiogram (*1)] Urgent
Reason for Study: Tachycardia
EKG- Treatment ONCE
01/15/25 09:59
Complete Blood Count/With Diff Urgent
Comprehensive Metabolic Panel Urgent
01/15/25 10:03
CT Chest PE Study Urgent
Comment:
Reason For Exam: sob/tachycardia w hx lung ca
01/15/25 10:08
0.9% Sodium Chloride 500 ml [Nss] 500 ml IV BOLUS
01/15/25 11:27
0.9% Sodium Chloride 500 ml [Nss] 500 ml IV BOLUS
01/15/25 13:10
Heparin Pf [Heparin Lock Flush] 500 unit .ROUTE .STK-MED ONE
Abnormal Lab Results
01/15/25
09:59
WBC 0.9 L* 10^3/uL
(4.8-10.8)
RBC 2.81 L 10^6/uL
(4.70-6.10)
Hgb 9.9 L g/dL
(13.0-18.0)
Hct 27.9 L %
(39.0-52.0)
MCV 99.3 H fL
(80.0-94.0)
MCH 35.2 H pg
(27.0-31.0)
Plt Count 61 L 10^3/uL
(130-400)
MPV 11.2 H fL
(7.4-10.4)
Absolute Neuts (auto) 0.7 L* 10^3/uL
(1.4-6.5)
Absolute Lymphs (auto) 0.1 L 10^3/uL
(1.2-3.4)
Immature Gran % 1.1 H %
(0-0.5)
Neutrophils % 77.2 H %
(42.2-75.2)
Lymphocytes % 15.2 L %
(20.5-51.1)
Chloride 109 H mmol/L
(98-107)
BUN 22 H mg/dl
(9-20)
Creatinine 1.4 H mg/dL
(0.7-1.3)
Glucose 142 H mg/dl
(70-99)
01/15/25 09:59
01/15/25 09:59
Vital Signs
Initial and Last Documented VS:
Initial Vital Signs
Temp Pulse Resp BP Pulse Ox
97.8 F 108 18 135/97 97
01/15/25 09:26 01/15/25 09:26 01/15/25 09:26 01/15/25 09:26 01/15/25 09:26
Last Documented Vital Signs
Temp Pulse Resp BP Pulse Ox
97.8 F 101 21 107/85 92
01/15/25 09:26 01/15/25 12:45 01/15/25 12:45 01/15/25 12:00 01/15/25 12:30
MDM/Problems Addressed
MDM/Problems Addressed:
CTA PE ordered, secondary to sudden onset of symptoms. Negative for acute pathology. Pt remains asymptomatic during observation in ED. Pt able to ambulate independently without any respiratory symptoms, prior to discharge. Pt feels comfortable going
home at this time and will continue outpatient treatment. Pt will return to ED with worsening symptoms.
*Pulse Oximetry
Patient hypoxic: yes (94%)
*EKG
Interpreted by ED Provider?: Yes
EKG Intrepretation Date: 01/15/25
Heart Rate: 115
Rate: tachycardiac
Rhythm: sinus
[place]: normal axis
Interval: normal interval
*Critical Care Note
Total Time (30-74mins, 75-104mins- exclusive of procedures): Not Applicable
ED Attending Note
-
Portions of this chart may have been created with voice recognition software.� Occasional wrong word or��sound alike� substitutions may have occurred due to the inherent limitations of voice recognition software.
Discharge Plan
Departure
Patient Disposition: Home (Routine Discharge)
Date of Disposition: 01/15/25
Time of Disposition: 13:03
Patient with high blood pressure during this ER visit?: Yes
Condition: Fair
Discharge Problem:
Dyspnea
Instructions: Shortness of Breath (Dyspnea) (DC)
Prescriptions:
No Action
atorvastatin [Lipitor] 10 mg Tablet
10 mg PO DAILY
Theragen Tablet
1 tab PO QPM
levothyroxine [Synthroid] 125 mcg Tablet
125 mcg PO DAILY
paclitaxel 6 mg/mL Concentrate
98 mg IV TH
carboplatin 150 mg Recon Soln
190 mg IV TH
Referrals:
Priyank Lee DO [Family Provider, Family Practice]
Activity Restrictions/Additional Instructions:
As discussed, please follow-up with your primary care physician and/or oncologist for further evaluation and treatment. Please return to ED with worsening symptoms.
Interventions
Interventions:
*Risk Screen - Suicide Last Done: 01/15/25 09:26
*General Assessment Last Done: 01/15/25 09:26
*Neglect/Abuse Screening Last Done: 01/15/25 09:26
*ED- Fall Risk Assessment Last Done: 01/15/25 09:26
*ED COVID-19 Vaccine History Last Done: 01/15/25 09:26
*Nursing Disposition Last Done: 01/15/25 13:16
ED- Cardiac Assessment Last Done: 01/15/25 09:31
ED- Pulmonary Assessment Last Done: 01/15/25 09:31
Discharge Date and Time
Discharge Date/Time: 01/15/25 13:21
Print Language: BRITISH
[2025-01-15 10:35] LABS: ALT (SGPT) 19 U/L (0-50); AST (SGOT) 22 U/L (17-59); Albumin 3.9 g/dl (3.5-5.0); Alkaline Phosphatase 92 U/L (38-126); Blood Urea Nitrogen 22 mg/dl (9-20); Calcium 8.4 mg/dl (8.4-10.2); Carbon Dioxide 26 mmol/L (22-30); Chloride 109 mmol/L (98-107); Estimated Creatinine Clearance 52 ml/min; Glucose 142 mg/dl (70-99); Potassium 4.1 mmol/L (3.5-5.1); Sodium 141 mmol/L (135-145); eGFR 53.74
[2025-01-15 11:33] VITALS: BP 124/78
[2025-01-15 12:00] VITALS: BP 107/85
[2025-01-15 12:18] LABS: % Basophils 1.1 % (0-2); % Immature Granulocytes 1.1 % (0-0.5); % Lymphocytes 15.2 % (20.5-51.1); % Monocytes 5.4 % (1.7-9.3); % Neutrophils 77.2 % (42.2-75.2); Absolute Lymphocytes 0.1 10^3/uL (1.2-3.4); Absolute Monocytes 0.1 10^3/uL (0.1-0.6); Absolute Neutrophils 0.7 10^3/uL (1.4-6.5); Mean Platelet Volume 11.2 fL (7.4-10.4); Nucleated Red Blood Cells % 0 % (-); Platelet Count 61 10^3/uL (130-400)
== END 2025-01-15 13:21 | disposition home or self-care (01) ==
LOC: EMR 09:24
PROVIDERS: EMERGENCY PHYSICIAN Emergency Medicine; FAMILY PHYSICIAN Student in an Organized Health Care Education/Training Program
DX: R06.00 Dyspnea, unspecified (principal); R53.1 Weakness; C34.90 Malignant neoplasm of unspecified part of unspecified bronchus or lung; Z79.60 Long term (current) use of unspecified immunomodulators and immunosuppressants; Z92.3 Personal history of irradiation
CPT/HCPCS: 96360; 99284; 71275; 80053; 85025; 93005; Q9967

== ENCOUNTER → 2025-01-17 09:56 | Outpatient (REF) | payer OTHER, SELFPAY ==
[2025-01-17 12:07] LABS: ALT (SGPT) 17 U/L (0-50); AST (SGOT) 21 U/L (17-59); Albumin 3.9 g/dl (3.5-5.0); Alkaline Phosphatase 87 U/L (38-126); Blood Urea Nitrogen 20 mg/dl (9-20); Calcium 8.5 mg/dl (8.4-10.2); Carbon Dioxide 24 mmol/L (22-30); Chloride 108 mmol/L (98-107); Glucose 127 mg/dl (70-99); Potassium 4.2 mmol/L (3.5-5.1); Sodium 140 mmol/L (135-145); Total Bilirubin 0.8 mg/dl (0.2-1.3); Total Protein 7.1 g/dl (6.3-8.2); eGFR 45.78
[2025-01-17 12:25] LABS: Hematocrit 28.3 % (39.0-52.0); Hemoglobin 9.8 g/dL (13.0-18.0); Mean Corp Hgb Conc. 34.6 g/dL (33.0-37.0); Mean Corpuscular Hgb 34.8 pg (27.0-31.0); Mean Corpuscular Volume 100.4 fL (80.0-94.0); Red Blood Cell Count 2.82 10^6/uL (4.70-6.10); Red Cell Dist. Width 12.1 % (11.5-14.5); White Blood Cell Count 0.9 10^3/uL (4.8-10.8)
[2025-01-17 14:54] LABS: Mean Platelet Volume 11.4 fL (7.4-10.4); Platelet Count 51 10^3/uL (130-400)
[2025-01-17 14:58] LABS: % Basophils 1.1 % (0-2); % Immature Granulocytes 2.3 % (0-0.5); % Lymphocytes 19.3 % (20.5-51.1); % Monocytes 11.4 % (1.7-9.3); % Neutrophils 65.9 % (42.2-75.2); Absolute Lymphocytes 0.2 10^3/uL (1.2-3.4); Absolute Monocytes 0.1 10^3/uL (0.1-0.6); Absolute Neutrophils 0.6 10^3/uL (1.4-6.5); Nucleated Red Blood Cells % 0 % (-)
== END ==
LOC: REG 09:56
PROVIDERS: ATTENDING PHYSICIAN Internal Medicine Hematology & Oncology; FAMILY PHYSICIAN Student in an Organized Health Care Education/Training Program
DX: C34.11 Malignant neoplasm of upper lobe, right bronchus or lung (principal)
CPT/HCPCS: 36415; 80053; 85025

== ENCOUNTER → 2025-01-24 09:31 | Outpatient (REF) | payer OTHER, SELFPAY ==
[2025-01-24 10:49] LABS: ALT (SGPT) 25 U/L (0-50); AST (SGOT) 42 U/L (17-59); Albumin 4.1 g/dl (3.5-5.0); Alkaline Phosphatase 86 U/L (38-126); Blood Urea Nitrogen 36 mg/dl (9-20); Calcium 8.7 mg/dl (8.4-10.2); Carbon Dioxide 24 mmol/L (22-30); Chloride 107 mmol/L (98-107); Glucose 122 mg/dl (70-99); Potassium 4.2 mmol/L (3.5-5.1); Sodium 141 mmol/L (135-145); Total Bilirubin 0.8 mg/dl (0.2-1.3); Total Protein 7.3 g/dl (6.3-8.2); eGFR 37.25
[2025-01-24 11:37] LABS: Hematocrit 28.2 % (39.0-52.0); Mean Corp Hgb Conc. 35.5 g/dL (33.0-37.0); Mean Corpuscular Volume 101.4 fL (80.0-94.0); Mean Platelet Volume 11.4 fL (7.4-10.4); Platelet Count 59 10^3/uL (130-400); Red Blood Cell Count 2.78 10^6/uL (4.70-6.10); Red Cell Dist. Width 14.2 % (11.5-14.5)
[2025-01-24 11:38] LABS: Absolute Neutrophils -Man Diff 0.5 10^3/uL (1.4-6.5); Band Neutrophils 16 % (0-3); Lymphocytes 4 % (20-51); Metamyelocytes 12 % (-); Monocytes 28 % (2-9); Myelocytes 8 % (-); Normal RBC Morphology No; Nucleated Red Blood Cells 4 (-); Platelets Checked Yes; Segmented Neutrophils 32 % (42-75); White Blood Cell Count 1.1 10^3/uL (4.8-10.8)
[2025-01-24 11:39] LABS: Anisocytosis 1+; Polychromasia 1+; Total Cells Counted 100
== END ==
LOC: REG 09:31
PROVIDERS: ATTENDING PHYSICIAN Internal Medicine Hematology & Oncology; FAMILY PHYSICIAN Student in an Organized Health Care Education/Training Program
DX: C34.11 Malignant neoplasm of upper lobe, right bronchus or lung (principal)
CPT/HCPCS: 36415; 80053; 85025

== ENCOUNTER → 2025-01-31 11:23 | Outpatient (REF) | payer OTHER, SELFPAY ==
[2025-01-31 12:16] LABS: Hematocrit 27.3 % (39.0-52.0); Hemoglobin 9.2 g/dL (13.0-18.0); Mean Corp Hgb Conc. 33.7 g/dL (33.0-37.0); Mean Corpuscular Volume 105.0 fL (80.0-94.0); Platelet Count 90 10^3/uL (130-400); Red Cell Dist. Width 16.5 % (11.5-14.5)
[2025-01-31 12:32] LABS: ALT (SGPT) 19 U/L (0-50); AST (SGOT) 23 U/L (17-59); Albumin 3.6 g/dl (3.5-5.0); Alkaline Phosphatase 91 U/L (38-126); Blood Urea Nitrogen 14 mg/dl (9-20); Calcium 8.3 mg/dl (8.4-10.2); Carbon Dioxide 26 mmol/L (22-30); Chloride 110 mmol/L (98-107); Glucose 126 mg/dl (70-99); Potassium 3.4 mmol/L (3.5-5.1); Sodium 142 mmol/L (135-145); Total Protein 6.7 g/dl (6.3-8.2); eGFR > 60.00
[2025-01-31 13:14] LABS: Absolute Neutrophils -Man Diff 1.8 10^3/uL (1.4-6.5)
[2025-01-31 13:15] LABS: Normal RBC Morphology Yes; Platelets Checked Yes; Total Cells Counted 100
== END ==
LOC: REG 11:23
PROVIDERS: ATTENDING PHYSICIAN Internal Medicine Hematology & Oncology; FAMILY PHYSICIAN Student in an Organized Health Care Education/Training Program
DX: C34.11 Malignant neoplasm of upper lobe, right bronchus or lung (principal)
CPT/HCPCS: 36415; 80053; 85025

== ENCOUNTER → 2025-02-12 08:48 | Outpatient (REF) | payer OTHER, SELFPAY ==
[2025-02-12 09:48] LABS: Hematocrit 27.8 % (39.0-52.0); Hemoglobin 9.2 g/dL (13.0-18.0); Mean Corp Hgb Conc. 33.1 g/dL (33.0-37.0); Mean Corpuscular Volume 106.9 fL (80.0-94.0); Nucleated Red Blood Cells % 0.6 % (-); Platelet Count 115 10^3/uL (130-400); Red Cell Dist. Width 18.7 % (11.5-14.5)
[2025-02-12 10:11] LABS: ALT (SGPT) 25 U/L (0-50); AST (SGOT) 27 U/L (17-59); Albumin 3.9 g/dl (3.5-5.0); Alkaline Phosphatase 90 U/L (38-126); Blood Urea Nitrogen 16 mg/dl (9-20); Calcium 8.6 mg/dl (8.4-10.2); Carbon Dioxide 25 mmol/L (22-30); Chloride 108 mmol/L (98-107); Glucose 130 mg/dl (70-99); Potassium 3.6 mmol/L (3.5-5.1); Sodium 141 mmol/L (135-145); Total Protein 6.8 g/dl (6.3-8.2); eGFR 53.74
== END ==
LOC: REG 08:48
PROVIDERS: ATTENDING PHYSICIAN Internal Medicine Hematology & Oncology; FAMILY PHYSICIAN Student in an Organized Health Care Education/Training Program
DX: C34.11 Malignant neoplasm of upper lobe, right bronchus or lung (principal)
CPT/HCPCS: 36415; 80053; 85025

== ENCOUNTER → 2025-02-22 09:52 | Outpatient (REF) | payer OTHER, SELFPAY ==
[2025-02-22 11:55] LABS: Hematocrit 26.6 % (39.0-52.0); Hemoglobin 8.8 g/dL (13.0-18.0); Mean Corp Hgb Conc. 33.1 g/dL (33.0-37.0); Mean Corpuscular Volume 111.3 fL (80.0-94.0); Platelet Count 126 10^3/uL (130-400); Red Cell Dist. Width 18.6 % (11.5-14.5)
[2025-02-22 12:19] LABS: ALT (SGPT) 18 U/L (0-50); AST (SGOT) 22 U/L (17-59); Albumin 3.4 g/dl (3.5-5.0); Alkaline Phosphatase 94 U/L (38-126); Blood Urea Nitrogen 8 mg/dl (9-20); Calcium 8.1 mg/dl (8.4-10.2); Carbon Dioxide 29 mmol/L (22-30); Chloride 108 mmol/L (98-107); Glucose 129 mg/dl (70-99); Potassium 3.6 mmol/L (3.5-5.1); Sodium 142 mmol/L (135-145); Total Protein 6.3 g/dl (6.3-8.2); eGFR > 60.00
[2025-02-22 12:42] LABS: Absolute Neutrophils -Man Diff 1.7 10^3/uL (1.4-6.5); Platelets Checked Yes
[2025-02-22 12:43] LABS: Anisocytosis 1+; Hypochromasia 1+; Normal RBC Morphology No; Polychromasia 1+; Total Cells Counted 100
== END ==
LOC: REG 09:52
PROVIDERS: ATTENDING PHYSICIAN Internal Medicine Hematology & Oncology; FAMILY PHYSICIAN Student in an Organized Health Care Education/Training Program
DX: C34.11 Malignant neoplasm of upper lobe, right bronchus or lung (principal)
CPT/HCPCS: 36415; 80053; 85025

== ENCOUNTER → 2025-03-16 10:24 | Outpatient (REF) | payer OTHER, SELFPAY ==
[2025-03-16 11:10] LABS: Hematocrit 29.6 % (39.0-52.0); Hemoglobin 9.6 g/dL (13.0-18.0); Mean Corp Hgb Conc. 32.4 g/dL (33.0-37.0); Mean Corpuscular Volume 113.4 fL (80.0-94.0); Nucleated Red Blood Cells % 0 % (-); Platelet Count 114 10^3/uL (130-400); Red Cell Dist. Width 15.9 % (11.5-14.5)
[2025-03-16 12:28] LABS: ALT (SGPT) 15 U/L (0-50); AST (SGOT) 22 U/L (17-59); Albumin 3.8 g/dl (3.5-5.0); Alkaline Phosphatase 91 U/L (38-126); Blood Urea Nitrogen 15 mg/dl (9-20); Calcium 8.3 mg/dl (8.4-10.2); Carbon Dioxide 27 mmol/L (22-30); Chloride 108 mmol/L (98-107); Glucose 130 mg/dl (70-99); Potassium 4.0 mmol/L (3.5-5.1); Sodium 142 mmol/L (135-145); Total Protein 6.9 g/dl (6.3-8.2); eGFR > 60.00
== END ==
LOC: REG 10:24
PROVIDERS: ATTENDING PHYSICIAN Internal Medicine Hematology & Oncology; FAMILY PHYSICIAN Student in an Organized Health Care Education/Training Program
DX: C34.11 Malignant neoplasm of upper lobe, right bronchus or lung (principal)
CPT/HCPCS: 36415; 80053; 85025

== ENCOUNTER → 2025-03-19 12:12 | Outpatient (REF) | payer OTHER, SELFPAY | LOC: RAD 12:12 | PROVIDERS: ATTENDING PHYSICIAN Nurse Practitioner Primary Care; FAMILY PHYSICIAN Student in an Organized Health Care Education/Training Program | DX: C34.11 Malignant neoplasm of upper lobe, right bronchus or lung (principal); D69.6 Thrombocytopenia, unspecified; D64.9 Anemia, unspecified; D70.9 Neutropenia, unspecified | CPT/HCPCS: 71046 ==

== ENCOUNTER → 2025-03-26 10:30 | Outpatient (REF) | payer OTHER, SELFPAY ==
[2025-03-26 12:03] LABS: Hematocrit 30.8 % (39.0-52.0); Hemoglobin 10.1 g/dL (13.0-18.0); Mean Corp Hgb Conc. 32.8 g/dL (33.0-37.0); Mean Corpuscular Volume 114.5 fL (80.0-94.0); Nucleated Red Blood Cells % 0 % (-); Platelet Count 136 10^3/uL (130-400); Red Cell Dist. Width 14.9 % (11.5-14.5)
[2025-03-26 12:34] LABS: ALT (SGPT) 17 U/L (0-50); AST (SGOT) 25 U/L (17-59); Albumin 3.9 g/dl (3.5-5.0); Alkaline Phosphatase 103 U/L (38-126); Blood Urea Nitrogen 10 mg/dl (9-20); Calcium 8.3 mg/dl (8.4-10.2); Carbon Dioxide 29 mmol/L (22-30); Chloride 106 mmol/L (98-107); Glucose 103 mg/dl (70-99); Potassium 4.4 mmol/L (3.5-5.1); Sodium 141 mmol/L (135-145); Total Protein 7.1 g/dl (6.3-8.2); eGFR > 60.00
== END ==
LOC: REG 10:30
PROVIDERS: ATTENDING PHYSICIAN Internal Medicine Hematology & Oncology; FAMILY PHYSICIAN Student in an Organized Health Care Education/Training Program
DX: C34.11 Malignant neoplasm of upper lobe, right bronchus or lung (principal)
CPT/HCPCS: 36415; 80053; 85025

== ENCOUNTER → 2025-03-30 09:51 | Outpatient (REF) | payer OTHER, SELFPAY ==
[2025-03-30 10:58] LABS: Hematocrit 32.9 % (39.0-52.0); Hemoglobin 10.8 g/dL (13.0-18.0); Mean Corp Hgb Conc. 32.8 g/dL (33.0-37.0); Mean Corpuscular Volume 114.2 fL (80.0-94.0); Nucleated Red Blood Cells % 0 % (-); Platelet Count 151 10^3/uL (130-400); Red Cell Dist. Width 14.4 % (11.5-14.5)
[2025-03-30 11:30] LABS: ALT (SGPT) 16 U/L (0-50); AST (SGOT) 24 U/L (17-59); Albumin 4.1 g/dl (3.5-5.0); Alkaline Phosphatase 104 U/L (38-126); Blood Urea Nitrogen 12 mg/dl (9-20); Calcium 9.0 mg/dl (8.4-10.2); Carbon Dioxide 29 mmol/L (22-30); Chloride 107 mmol/L (98-107); Glucose 126 mg/dl (70-99); Potassium 4.8 mmol/L (3.5-5.1); Sodium 141 mmol/L (135-145); Total Protein 7.5 g/dl (6.3-8.2); eGFR > 60.00
[2025-03-30 12:25] LABS: TSH 0.13 uIU/ml (0.47-4.68)
[2025-03-30 13:01] LABS: Folate 15.3 ng/ml (2.76-20); Vitamin B12 394 pg/ml (239-931)
[2025-03-31 21:04] LABS: Total T3 (Sendout) 129 ng/dL (80-200)
== END ==
LOC: REG 09:51
PROVIDERS: ATTENDING PHYSICIAN Internal Medicine Hematology & Oncology; FAMILY PHYSICIAN Student in an Organized Health Care Education/Training Program
DX: C34.11 Malignant neoplasm of upper lobe, right bronchus or lung (principal); D69.6 Thrombocytopenia, unspecified; D64.9 Anemia, unspecified; D70.9 Neutropenia, unspecified
CPT/HCPCS: 36415; 80053; 82607; 82746; 84439; 84443; 84480; 85025

== ENCOUNTER → 2025-04-16 09:12 | Outpatient (REF) | payer OTHER, SELFPAY ==
[2025-04-16 10:44] LABS: ALT (SGPT) 18 U/L (0-50); AST (SGOT) 23 U/L (17-59); Albumin 3.9 g/dl (3.5-5.0); Alkaline Phosphatase 106 U/L (38-126); Blood Urea Nitrogen 11 mg/dl (9-20); Calcium 8.9 mg/dl (8.4-10.2); Carbon Dioxide 28 mmol/L (22-30); Chloride 106 mmol/L (98-107); Glucose 125 mg/dl (70-99); Sodium 141 mmol/L (135-145); Total Protein 7.2 g/dl (6.3-8.2); eGFR > 60.00
[2025-04-16 10:51] LABS: Potassium 4.1 mmol/L (3.5-5.1)
[2025-04-16 10:54] LABS: Hematocrit 33.7 % (39.0-52.0); Hemoglobin 10.8 g/dL (13.0-18.0); Mean Corp Hgb Conc. 32.0 g/dL (33.0-37.0); Mean Corpuscular Volume 113.1 fL (80.0-94.0); Nucleated Red Blood Cells % 0 % (-); Platelet Count 161 10^3/uL (130-400); Red Cell Dist. Width 13.0 % (11.5-14.5)
== END ==
LOC: REG 09:12
PROVIDERS: ATTENDING PHYSICIAN Internal Medicine Hematology & Oncology; FAMILY PHYSICIAN Student in an Organized Health Care Education/Training Program
DX: C34.11 Malignant neoplasm of upper lobe, right bronchus or lung (principal); D69.6 Thrombocytopenia, unspecified; D64.9 Anemia, unspecified; D70.9 Neutropenia, unspecified
CPT/HCPCS: 36415; 80053; 85025

== ENCOUNTER → 2025-04-20 07:21 | Outpatient (REF) | payer OTHER, SELFPAY ==
[2025-04-20 08:01] LABS: Hematocrit 34.6 % (39.0-52.0); Hemoglobin 11.6 g/dL (13.0-18.0); Mean Corp Hgb Conc. 33.5 g/dL (33.0-37.0); Mean Corpuscular Volume 111.6 fL (80.0-94.0); Nucleated Red Blood Cells % 0 % (-); Platelet Count 184 10^3/uL (130-400); Red Cell Dist. Width 12.6 % (11.5-14.5)
[2025-04-20 08:19] LABS: ALT (SGPT) 18 U/L (0-50); AST (SGOT) 25 U/L (17-59); Albumin 4.2 g/dl (3.5-5.0); Alkaline Phosphatase 112 U/L (38-126); Blood Urea Nitrogen 15 mg/dl (9-20); Calcium 9.2 mg/dl (8.4-10.2); Carbon Dioxide 27 mmol/L (22-30); Chloride 107 mmol/L (98-107); Glucose 119 mg/dl (70-99); HDL Cholesterol 40 mg/dl; LDL Cholesterol, Calculated 88 mg/dl; Potassium 4.7 mmol/L (3.5-5.1); Sodium 140 mmol/L (135-145); Total Protein 7.9 g/dl (6.3-8.2); Very Low Density Lipoprotein 18 mg/dl (0-30); eGFR > 60.00
[2025-04-20 09:04] LABS: PSA, Total - Screen 1.05 ng/ml (0.0-4.0); TSH 0.08 uIU/ml (0.47-4.68)
== END ==
LOC: REG 07:21
PROVIDERS: ATTENDING PHYSICIAN Internal Medicine Hematology & Oncology; FAMILY PHYSICIAN Student in an Organized Health Care Education/Training Program
DX: Z90.2 Acquired absence of lung [part of] (principal); Z85.118 Personal history of other malignant neoplasm of bronchus and lung; E03.9 Hypothyroidism, unspecified; C34.11 Malignant neoplasm of upper lobe, right bronchus or lung
CPT/HCPCS: 80053; 80061; 84443; 85025; G0103

== ENCOUNTER → 2025-04-20 07:58 | Outpatient (REF) | payer OTHER, SELFPAY | LOC: PET 07:58 | PROVIDERS: ATTENDING PHYSICIAN Internal Medicine Hematology & Oncology | DX: C34.11 Malignant neoplasm of upper lobe, right bronchus or lung (principal); D69.6 Thrombocytopenia, unspecified; D64.9 Anemia, unspecified; D70.9 Neutropenia, unspecified | CPT/HCPCS: 36415; 80053; 80061; 84443; 85025; G0103 ==

== ENCOUNTER → 2025-04-27 08:24 | Outpatient (REF) | payer OTHER, SELFPAY | LOC: RAD 08:24 | PROVIDERS: ATTENDING PHYSICIAN Radiology Radiation Oncology; FAMILY PHYSICIAN Student in an Organized Health Care Education/Training Program | DX: C34.11 Malignant neoplasm of upper lobe, right bronchus or lung (principal) | CPT/HCPCS: 71260; Q9967 ==

== ENCOUNTER → 2025-05-14 10:10 | Outpatient (REF) | payer OTHER, SELFPAY ==
[2025-05-14 11:28] LABS: Hematocrit 35.3 % (39.0-52.0); Hemoglobin 11.5 g/dL (13.0-18.0); Mean Corp Hgb Conc. 32.6 g/dL (33.0-37.0); Mean Corpuscular Volume 109.0 fL (80.0-94.0); Nucleated Red Blood Cells % 0 % (-); Platelet Count 191 10^3/uL (130-400); Red Cell Dist. Width 12.4 % (11.5-14.5)
[2025-05-14 12:01] LABS: ALT (SGPT) 23 U/L (0-50); AST (SGOT) 27 U/L (17-59); Albumin 4.1 g/dl (3.5-5.0); Alkaline Phosphatase 121 U/L (38-126); Blood Urea Nitrogen 14 mg/dl (9-20); Calcium 8.7 mg/dl (8.4-10.2); Carbon Dioxide 27 mmol/L (22-30); Chloride 107 mmol/L (98-107); Glucose 125 mg/dl (70-99); Potassium 4.3 mmol/L (3.5-5.1); Sodium 141 mmol/L (135-145); Total Protein 7.6 g/dl (6.3-8.2); eGFR > 60.00
[2025-05-14 12:23] LABS: PSA, Total - Diagnostic 1.65 ng/ml (0.0-4.0); TSH 0.16 uIU/ml (0.47-4.68)
[2025-05-16 14:49] LABS: Total T3 (Sendout) 109 ng/dL (80-200)
== END ==
LOC: REG 10:10
PROVIDERS: ATTENDING PHYSICIAN Internal Medicine Hematology & Oncology; FAMILY PHYSICIAN Student in an Organized Health Care Education/Training Program
DX: C34.11 Malignant neoplasm of upper lobe, right bronchus or lung (principal); D69.6 Thrombocytopenia, unspecified; D64.9 Anemia, unspecified; D70.9 Neutropenia, unspecified
CPT/HCPCS: 36415; 80053; 84153; 84439; 84443; 84480; 85025

== ENCOUNTER → 2025-06-29 10:27 | Outpatient (REF) | payer OTHER, SELFPAY ==
[2025-06-29 11:00] LABS: Hematocrit 36.2 % (39.0-52.0); Hemoglobin 11.6 g/dL (13.0-18.0); Mean Corp Hgb Conc. 32.0 g/dL (33.0-37.0); Mean Corpuscular Volume 109.4 fL (80.0-94.0); Nucleated Red Blood Cells % 0 % (-); Platelet Count 151 10^3/uL (130-400); Red Cell Dist. Width 13.4 % (11.5-14.5)
[2025-06-29 12:05] LABS: PSA, Total - Diagnostic 1.37 ng/ml (0.0-4.0)
== END ==
LOC: REG 10:27
PROVIDERS: ATTENDING PHYSICIAN Internal Medicine Hematology & Oncology; FAMILY PHYSICIAN Student in an Organized Health Care Education/Training Program; OTHER PHYSICIAN Radiology Radiation Oncology
DX: C34.11 Malignant neoplasm of upper lobe, right bronchus or lung (principal); D69.6 Thrombocytopenia, unspecified; D64.9 Anemia, unspecified; D70.9 Neutropenia, unspecified; E03.9 Hypothyroidism, unspecified
CPT/HCPCS: 36415; 84153; 84443; 85025

== ENCOUNTER → 2025-07-16 10:51 | Outpatient (REF) | payer OTHER, SELFPAY ==
[2025-07-16 11:28] LABS: Hematocrit 34.6 % (39.0-52.0); Hemoglobin 11.2 g/dL (13.0-18.0); Mean Corp Hgb Conc. 32.4 g/dL (33.0-37.0); Mean Corpuscular Volume 104.8 fL (80.0-94.0); Nucleated Red Blood Cells % 0 % (-); Platelet Count 151 10^3/uL (130-400); Red Cell Dist. Width 13.9 % (11.5-14.5)
[2025-07-16 12:15] LABS: ALT (SGPT) 25 U/L (0-50); AST (SGOT) 32 U/L (17-59); Albumin 4.3 g/dl (3.5-5.0); Alkaline Phosphatase 111 U/L (38-126); Blood Urea Nitrogen 21 mg/dl (9-20); Calcium 8.9 mg/dl (8.4-10.2); Carbon Dioxide 26 mmol/L (22-30); Chloride 107 mmol/L (98-107); Glucose 119 mg/dl (70-99); Potassium 4.3 mmol/L (3.5-5.1); Sodium 139 mmol/L (135-145); Total Protein 8.0 g/dl (6.3-8.2); eGFR > 60.00
[2025-07-16 12:35] LABS: TSH 1.79 uIU/ml (0.47-4.68)
[2025-07-18 05:06] LABS: Total T3 (Sendout) 94 ng/dL (80-200)
== END ==
LOC: REG 10:51
PROVIDERS: ATTENDING PHYSICIAN Internal Medicine Hematology & Oncology; FAMILY PHYSICIAN Student in an Organized Health Care Education/Training Program
DX: C34.11 Malignant neoplasm of upper lobe, right bronchus or lung (principal); D69.6 Thrombocytopenia, unspecified; D64.9 Anemia, unspecified; D70.9 Neutropenia, unspecified
CPT/HCPCS: 36415; 80053; 84439; 84443; 84480; 85025